=== PATIENT | male | born 1970 | race Caucasian/White ===

== ENCOUNTER 2023-05-27 16:23 | Emergency (ER) | payer OTHER, SELFPAY ==
--- NOTE | 2023-05-27 16:32 | ED.GENADULT ---
HPI - General Adult General Chief complaint: Upper Respiratory Infection Stated complaint: cough,chest discomfort Time Seen by Provider: 05/27/23 16:42 Source: patient, RN notes reviewed and old records reviewed Mode of arrival: ambulatory Limitations: no limitations History of Present Illness HPI narrative: 52-year-old male presents to the [facility] with complaints of a cough, congestion, felt fevers, body aches since Friday, 6 days. Reports that as a tickle in his throat. Patient has a significant history of type 2 diabetes, hypertension, high cholesterol. Patient reports stop smoking in 2000. Denies any shortness of breath. Reports chest discomfort when coughing Onset (ago): day(s) (6) Treatments prior to arrival: other (Cold medicine, ibuprofen) Related Data Home Medications Medication Instructions Recorded Confirmed aspirin 81 mg tablet,delayed 81 mg PO DAILY 05/27/23 05/27/23 release atorvastatin 10 mg tablet 10 mg PO HS 05/27/23 05/27/23 blood sugar diagnostic (Count includes the [facility] 05/27/23 05/27/23 Ultra Test strips) [facility] 05/27/23 Ultra2 Meter) empagliflozin 25 mg tablet 25 mg PO DAILY 05/27/23 05/27/23 (Jardiance) gabapentin 600 mg tablet 600 mg PO TID 05/27/23 05/27/23 glipizide 5 mg tablet 5 mg PO BID 05/27/23 05/27/23 lancets 33 gauge ([facility] 05/27/23 05/27/23 Plus Lancet) lisinopril 5 mg tablet 5 mg PO DAILY 05/27/23 05/27/23 metformin 500 mg tablet,extended 1,000 mg PO BID 05/27/23 05/27/23 release 24 hr pioglitazone 30 mg tablet 30 mg PO DAILY 05/27/23 05/27/23 Allergies Allergy/AdvReac Type Severity Reaction Status Date / Time Penicillins AdvReac Mild Hives Verified 05/27/23 16:49 Review of Systems Review of Systems: All systems reviewed & are unremarkable except as noted in HPI and below Constitutional: Constitutional: Reports as per HPI Eyes: Eyes: Reports no additional eye complaints ENT: Reports as per HPI Cardiovascular: Cardiovascular: Reports no additional cardiovascular complaints, Denies chest pain and Denies dyspnea Respiratory: Respiratory: Reports as per HPI, Denies chest congestion, Reports cough and Denies dyspnea Gastrointestinal: Gastrointestinal: Reports no additional gastrointestinal complaints, Denies abdominal pain, Denies nausea and Denies vomiting Musculoskeletal: Musculoskeletal: Reports no additional musculoskeletal complaints Integumentary/Breasts: Skin/Breast: Reports system reviewed and no additional complaints, except as docu Neurologic: Reports system reviewed and no additional complaints, except as documented Psychiatric: Psychiatric: Reports no additional psychiatric complaints Allergic/Immunologic: Allergic/Immunologic: Reports no additional allergic/immunologic complaints [facility] Past Medical History Medical History History of diabetes mellitus, type II History of high blood pressure History of high cholesterol Social History Social History (Updated 05/27/23 @ 19:50 by Fernanda Gomez APRN) Smoking status: Former smoker Comments At the time of my signature, I reviewed and agree with the nursing past medical, surgical, social, and family history. There is no relevant family history pertinent to the patient complaint. Exam Const: General: cooperative, healthy appearing, comfortable, no acute distress, well developed, alert and well nourished Nutritional Appearance: well nourished Orientation/consciousness: patient oriented x3 Limitations: no limitations HENMT: Head: normal to inspection Ears: hearing grossly normal bilaterally, external ears normal, TM's normal bilaterally, EAC's normal, mastoids normal and no periauricular adenopathy Face/Nose/Sinus: Normal external nose present, Normal nares present, Normal nasal mucous membranes and turbinates present, normal facial exam and face symmetric Face and sinus: normal facial exam and fac
[2023-05-27 16:42] VITALS: BP 141/84; PULSE 87; RESP 16; TEMP 36; O2SAT 97
== END 2023-05-27 17:00 | disposition home or self-care (01) ==
PROVIDERS: Emergency Provider Nurse Practitioner; PCP Family Medicine
DX: R09.82 Postnasal drip (principal); J06.9 Acute upper respiratory infection, unspecified; Z87.891 Personal history of nicotine dependence; E11.9 Type 2 diabetes mellitus without complications; Z79.84 Long term (current) use of oral hypoglycemic drugs; I10 Essential (primary) hypertension; E78.00 Pure hypercholesterolemia, unspecified; Z79.82 Long term (current) use of aspirin
CPT/HCPCS: 99202; G0463

== ENCOUNTER 2023-06-11 19:33 | Emergency (ER) | payer OTHER, SELFPAY ==
--- NOTE | 2023-06-11 19:37 | ED.EYEPROB ---
HPI - Eye Problem General Chief complaint: Eye Problems Stated complaint: Right Eye Irritation Time Seen by Provider: 06/11/23 19:37 Source: patient Mode of arrival: ambulatory Limitations: no limitations History of Present Illness HPI Narrative: 52-year-old male presents with complaint of foreign body to right eye. Patient states he was driving and car and thinks particle from his sweatshirt flew in to right eye. Patient was working with drywall and removing a popcorn ceiling today. Attempted to remove at home but was not able to. No vision changes, eye drainage or photophobia. All systems reviewed and negative except as noted above. Related Data Home Medications Medication Instructions Recorded Confirmed aspirin 81 mg tablet,delayed 81 mg PO DAILY 05/27/23 06/11/23 release atorvastatin 10 mg tablet 10 mg PO HS 05/27/23 06/11/23 blood sugar diagnostic (Pending sale to [facility] 05/27/23 06/11/23 Ultra Test strips) blood-glucose meter (Pending sale to [facility] 05/27/23 06/11/23 Ultra2 Meter) empagliflozin 25 mg tablet 25 mg PO DAILY 05/27/23 06/11/23 (Jardiance) gabapentin 600 mg tablet 600 mg PO TID 05/27/23 06/11/23 glipizide 5 mg tablet 5 mg PO BID 05/27/23 06/11/23 lancets 33 gauge (Pending sale to [facility] 05/27/23 06/11/23 Plus Lancet) lisinopril 5 mg tablet 5 mg PO DAILY 05/27/23 06/11/23 metformin 500 mg tablet,extended 1,000 mg PO BID 05/27/23 06/11/23 release 24 hr pioglitazone 30 mg tablet 30 mg PO DAILY 05/27/23 06/11/23 Allergies Allergy/AdvReac Type Severity Reaction Status Date / Time Penicillins AdvReac Mild Hives Verified 06/11/23 19:34 Review of Systems Review of Systems: CONSTITUTIONAL: Denies fever, chills, or sweats. EYES: Denies visual changes, redness, or discharge. Reports foreign body to right eye. ENT: Denies rhinorrhea, congestion, sore throat, or otalgia. CARDIOVASCULAR: Denies chest pain, palpitations, or edema. RESPIRATORY: Denies cough or dyspnea. GASTROINTESTINAL: Denies abdominal pain, nausea, vomiting, or diarrhea. GENITOURINARY: Denies dysuria or hematuria. SKIN: Denies rash or itching. MUSCULOSKELETAL: Denies back pain, joint pain, or myalgia. NEUROLOGIC: Denies headache, numbness, or weakness. PSYCHIATRIC: Denies anxiety or depression. All other systems reviewed are negative, except as documented in HPI. [facility] Past Medical History Medical History History of diabetes mellitus, type II History of high blood pressure History of high cholesterol Social History Social History (Updated 05/27/23 @ 19:50 by Fernanda Gomez APRN) Smoking status: Former smoker Comments At time of signature, agree with nursing past medical, surgical, social and family history. There is no relevant family history pertinent to the presenting complaint. Exam Narrative: GENERAL: This is a well-nourished, well-developed patient, in no apparent distress. HEAD: normocephalic, atraumatic. EYES: PERRL. Mild erythema to Sclera. Vision is grossly intact. Topical anesthetic was instilled with good anesthesia using 1gtt of opth anesthetic agent (tetracaine). Fluorescein stain of the R eye was performed. Small foreign body noted at position of 6 o'clock of cornea. small corneal abrasion noted after FB removal. Upper lid was everted and no FB or lesions were noted. Normal saline irrigation eye solution was performed and the patient tolerated the procedure well, no adverse reaction or complications. EARS: External ears normal NOSE: External nose normal NECK: Neck supple, non-tender without lymphadenopathy, masses or thyromegaly. CARDIOVASCULAR: Regular rate and rhythm without murmurs, gallops, or rubs. RESPIRATORY: Clear to auscultation. Breath sounds equal bilaterally. No wheezes, rales, or rhonchi. SKIN: warm, Dry, intact with no suspicious lesions or rash, good texture and turgor. NEURO: awake, alert, and oriented to person, place and time. There wer
[2023-06-11 19:41] VITALS: BP 150/82; PULSE 87; RESP 18; TEMP 36.3; O2SAT 99
== END 2023-06-11 19:52 | disposition home or self-care (01) ==
PROVIDERS: Emergency Provider Nurse Practitioner Family; PCP Family Medicine
DX: T15.01XA Foreign body in cornea, right eye, initial encounter (principal); W44.9XXA Unspecified foreign body entering into or through a natural orifice, initial encounter; E11.9 Type 2 diabetes mellitus without complications; Z79.84 Long term (current) use of oral hypoglycemic drugs; I10 Essential (primary) hypertension; E78.00 Pure hypercholesterolemia, unspecified; Z87.891 Personal history of nicotine dependence; Z79.82 Long term (current) use of aspirin
CPT/HCPCS: 99213; A9270; G0463

== ENCOUNTER 2023-09-11 16:21 | Emergency (ER) | payer OTHER, SELFPAY ==
[2023-09-11 16:28] VITALS: BP 139/76; PULSE 95; RESP 18; TEMP 36.6; O2SAT 100
--- NOTE | 2023-09-11 16:34 | ED.DENTAL ---
HPI - Dental/Oral General Chief complaint: Dental/Oral Stated complaint: oral pain Time Seen by Provider: 09/11/23 16:41 Source: patient, RN notes reviewed and old records reviewed Mode of arrival: ambulatory Limitations: no limitations History of Present Illness HPI Narrative: 52-year-old male to [facility] for complaint of diffuse dental pain, headache, body aches, diffuse gingival pain and swelling, fever for four days. Patient reporting pain 7/10 currently, states that the worst discomfort is at his upper right molar area. Patient states that he has a history of bad teeth . Patient cannot recall his last visit to a dentist. States that he has an appointment scheduled on October 26. Patient endorses allergy to penicillin, states that he has tolerated amoxicillin previously. Patient denies chest pain, difficulty swallowing, shortness breath, nausea, vomiting. patient states that he has had 2 adhere to a mostly soft diet over the past 3 days. Patient able to tolerate fluids by mouth. Respirations even and nonlabored. Patient able speak in complete sentences without difficulty. Patient in no acute distress. Related Data Home Medications Medication Instructions Recorded Confirmed aspirin 81 mg tablet,delayed 81 mg PO DAILY 05/27/23 06/11/23 release atorvastatin 10 mg tablet 10 mg PO HS 05/27/23 06/11/23 blood sugar diagnostic ([facility] 05/27/23 06/11/23 Ultra Test strips) blood-glucose meter ([facility] 05/27/23 06/11/23 Ultra2 Meter) empagliflozin 25 mg tablet 25 mg PO DAILY 05/27/23 06/11/23 (Jardiance) gabapentin 600 mg tablet 600 mg PO TID 05/27/23 06/11/23 glipizide 5 mg tablet 5 mg PO BID 05/27/23 06/11/23 lancets 33 gauge ([facility] 05/27/23 06/11/23 Plus Lancet) lisinopril 5 mg tablet 5 mg PO DAILY 05/27/23 06/11/23 metformin 500 mg tablet,extended 1,000 mg PO BID 05/27/23 06/11/23 release 24 hr pioglitazone 30 mg tablet (Actos) 30 mg PO DAILY 05/27/23 06/11/23 dulaglutide 0.75 mg/0.5 mL mg subcut 09/11/23 subcutaneous pen injector ([facility]) Allergies Allergy/AdvReac Type Severity Reaction Status Date / Time Penicillins Allergy Mild Hives Verified 09/11/23 16:42 Review of Systems Review of Systems: All systems reviewed & are unremarkable except as noted in HPI and below Constitutional: Constitutional: Reports as per HPI, Reports body ache(s), Reports chills, Reports difficulty sleeping, Reports fatigue and Reports fever(s) Eyes: Eyes: Reports no additional eye complaints ENT: Reports as per HPI, Reports dental pain, Denies hoarseness, Reports mouth pain, Denies throat swelling and Denies tongue swelling Cardiovascular: Cardiovascular: Reports no additional cardiovascular complaints, Denies chest pain and Denies dyspnea Respiratory: Respiratory: Reports no additional respiratory complaints, Denies cough and Denies dyspnea Musculoskeletal: Musculoskeletal: Reports no additional musculoskeletal complaints Neurologic: Reports system reviewed and no additional complaints, except as documented Psychiatric: Psychiatric: Reports no additional psychiatric complaints PMFSH Past Medical History Medical History History of diabetes mellitus, type II History of high blood pressure History of high cholesterol Social History Social History (Updated 05/27/23 @ 19:50 by Fernanda Gomez APRN) Smoking status: Former smoker Comments At the time of my signature, I reviewed and agree with the nursing past medical, surgical, social, and family history. There is no relevant family history pertinent to the patient complaint. Exam Const: General: cooperative, no acute distress, alert, uncomfortable and well nourished Nutritional Appearance: well nourished Orientation/consciousness: patient oriented x3 Limitations: no limitations HENMT: Head: normal to inspection Ears: external ears normal Face/Nose/Sinus: Normal e
== END 2023-09-11 17:05 | disposition home or self-care (01) ==
PROVIDERS: Emergency Provider Nurse Practitioner Family
DX: K02.9 Dental caries, unspecified (principal); K04.7 Periapical abscess without sinus; K05.10 Chronic gingivitis, plaque induced; S02.5XXA Fracture of tooth (traumatic), initial encounter for closed fracture; X58.XXXA Exposure to other specified factors, initial encounter; Z87.891 Personal history of nicotine dependence; E11.9 Type 2 diabetes mellitus without complications; I10 Essential (primary) hypertension; E78.00 Pure hypercholesterolemia, unspecified; Z79.82 Long term (current) use of aspirin
CPT/HCPCS: 99213; G0463

== ENCOUNTER 2023-11-18 17:51 | Emergency (ER) | payer OTHER, SELFPAY ==
[2023-11-18 18:01] VITALS: BP 128/69; PULSE 72; RESP 17; TEMP 36.5; O2SAT 99
--- NOTE | 2023-11-18 18:05 | ED.LOWEXIN ---
HPI - Extremity Injury (Lower) General Chief Complaint: Extremity Injury, Lower Stated Complaint: RT Leg Pain Source: patient Mode of arrival: ambulatory Limitations: no limitations History of Present Illness HPI Narrative: 53-year-old male presented for complaint of right lower leg wound sustained 1 week ago. Now reports purple bruising to the lower leg for about 2 days. He states he fell through a wooden deck approximately 4 ft and scraped the naylor. He denies ankle or foot pain or decreased range of motion. Reports the wound was not cleansed he continued to work, then use soap and water when he arrived home. Has continued to clean the site with soap and water. Related Data Home Medications Medication Instructions Recorded Confirmed aspirin 81 mg tablet,delayed 81 mg PO DAILY 05/27/23 11/18/23 release atorvastatin 10 mg tablet 10 mg PO HS 05/27/23 11/18/23 [facility]18/23 Ultra Test strips[facility] 11/18/23 Ultra2 Meter) empagliflozin 25 mg tablet 25 mg PO DAILY 05/27/23 11/18/23 (Jardiance) gabapentin 600 mg tablet 600 mg PO TID 05/27/23 11/18/23 glipizide 5 mg tablet 5 mg PO BID 05/27/23 11/18/23 [facility]ets [facility] 05/27/23 11/18/23 Plus Lancet) lisinopril 5 mg tablet 5 mg PO DAILY 05/27/23 11/18/23 metformin 500 mg tablet,extended 1,000 mg PO BID 05/27/23 11/18/23 release 24 hr pioglitazone 30 mg tablet (Actos) 30 mg PO DAILY 05/27/23 11/18/23 Allergies Allergy/AdvReac Type Severity Reaction Status Date / Time Penicillins Allergy Mild Hives Verified 09/11/23 16:42 Review of Systems Review of Systems: CONSTITUTIONAL: Denies fever, chills, or sweats. CARDIOVASCULAR: Denies chest pain, palpitations, or edema. RESPIRATORY: Denies cough or dyspnea. GASTROINTESTINAL: Denies abdominal pain, nausea, vomiting, or diarrhea. SKIN: Reports skin wound to naylor MUSCULOSKELETAL: Denies back pain, joint pain, or myalgia. NEUROLOGIC: Denies numbness, tingling, or weakness. PMFSH Past Medical History Medical History History of diabetes mellitus, type II History of high blood pressure History of high cholesterol Social History Social History Smoking status: Former smoker Comments At time of signature, I have reviewed and agree with nursing past medical, surgical, social and family history unless otherwise noted. Please see nursing chart for further information. There is no relevant family history pertinent to the presenting complaint Exam Narrative: GENERAL: Well-appearing ENT: Mucous membranes moist. CHEST: Clear to auscultation. HEART: Regular rate and rhythm. SKIN: Warm, dry. Right anterior naylor with skin abrasion 11 cm x 1 cm, no active drainage, no surrounding induration or warmth; mildly tender to palpation. Ecchymosis noted distal to the abrasion scattered around the ankle and posterior lower leg, nontender. No calf tenderness. Minimal right lower extremity swelling. NEURO: Alert and oriented x3. Course Course Emergency Course: Patient is aware of diagnosis, understands and agrees to treatment plan. Anticipatory guidance given. Patient agrees to follow-up as directed and is aware of reasons to seek care at the emergency department. Portions of this record may have been created with voice recognition software Level of Care: Express Care Visit Vital Signs Vital signs: Vital Signs Temperature 97.7 F 11/18/23 18:01 Pulse Rate 72 11/18/23 18:01 Respiratory Rate 17 11/18/23 18:01 Blood Pressure 128/69 11/18/23 18:01 Pulse Oximetry 99 11/18/23 18:01 Oxygen Delivery Room Air 11/18/23 18:01 Temperature 97.7 F 11/18/23 18:01 Pulse Rate 72 11/18/23 18:01 Respiratory Rate 17 11/18/23 18:01 Blood Pressure 128/69 11/18/23 18:01 Pulse Oximet
== END 2023-11-18 18:24 | disposition home or self-care (01) ==
PROVIDERS: Emergency Provider Nurse Practitioner Family; PCP Family Medicine
DX: S80.811A Abrasion, right lower leg, initial encounter (principal); W13.8XXA Fall from, out of or through other building or structure, initial encounter; K08.89 Other specified disorders of teeth and supporting structures; E11.9 Type 2 diabetes mellitus without complications; Z79.84 Long term (current) use of oral hypoglycemic drugs; I10 Essential (primary) hypertension; E78.00 Pure hypercholesterolemia, unspecified; Z87.891 Personal history of nicotine dependence; Z79.82 Long term (current) use of aspirin
CPT/HCPCS: 99213; G0463

== ENCOUNTER 2024-06-23 08:53 | Emergency (ER) | payer OTHER, SELFPAY ==
--- NOTE | 2024-06-23 09:00 | ED.URI ---
HPI - URI/Sore Throat General Chief Complaint: Upper Respiratory Infection Stated Complaint: cold symptoms Time Seen by Provider: 06/23/24 09:01 Source: patient Mode of arrival: ambulatory Limitations: no limitations History of Present Illness HPI Narrative: 53-year-old male presents with complaint really bad sore throat since last night with fatigue, body aches, chills. Denies nausea vomiting. No Cough or congestion. all systems reviewed and negative except as noted above. Related Data Home Medications ?Medication ?Instructions ?Recorded ?Confirmed ?Last Taken ?Type aspirin 81 mg tablet,delayed 81 mg PO DAILY 05/27/23 06/23/24 Unknown History release atorvastatin 10 mg tablet 10 mg PO HS 05/27/23 06/23/24 Unknown History blood sugar diagnostic ([facility] 05/27/23 06/23/24 Unknown History Ultra Test strips) blood-glucose meter ([facility] 05/27/23 06/23/24 Unknown History Ultra2 Meter) empagliflozin 25 mg tablet 25 mg PO DAILY 05/27/23 06/23/24 Unknown History (Jardiance) gabapentin 600 mg tablet 600 mg PO TID 05/27/23 06/23/24 Unknown History glipizide 5 mg tablet 5 mg PO BID 05/27/23 06/23/24 Unknown History lancets 33 gauge ([facility] 05/27/23 06/23/24 Unknown History Plus Lancet) lisinopril 5 mg tablet 5 mg PO DAILY 05/27/23 06/23/24 Unknown History metformin 500 mg tablet,extended 1,000 mg PO BID 05/27/23 06/23/24 Unknown History release 24 hr pioglitazone 30 mg tablet (Actos) 30 mg PO DAILY 05/27/23 06/23/24 Unknown History dulaglutide 1.5 mg/0.5 mL mg subcut 06/23/24 Unknown History subcutaneous pen injector (Trulicity) ergocalciferol (vitamin D2) 1,250 06/23/24 Unknown History mcg (50,000 unit) capsule fenofibrate 54 mg tablet mg 06/23/24 Unknown History tadalafil 10 mg tablet mg 06/23/24 Unknown History Allergies Allergy/AdvReac Type Severity Reaction Status Date / Time Penicillins Allergy Mild Hives Verified 06/23/24 08:56 Review of Systems Review of Systems: CONSTITUTIONAL: Denies fever . reports chills and fatigue. EYES: Denies visual changes, redness, or discharge. ENT: Denies rhinorrhea, congestion . Reports sore throat. Denies otalgia. CARDIOVASCULAR: Denies chest pain, palpitations, or edema. RESPIRATORY: Denies cough or dyspnea. GASTROINTESTINAL: Denies abdominal pain, nausea, vomiting, or diarrhea. GENITOURINARY: Denies dysuria or hematuria. SKIN: Denies rash or itching. MUSCULOSKELETAL: Denies back pain, joint pain, or myalgia. NEUROLOGIC: Denies headache, numbness, or weakness. PSYCHIATRIC: Denies anxiety or depression. All other systems reviewed are negative, except as documented in HPI. [facility] Past Medical History Medical History History of diabetes mellitus, type II History of high blood pressure History of high cholesterol Social History Social History Smoking status: Former smoker Comments At time of signature, agree with nursing past medical, surgical, social and family history. There is no relevant family history pertinent to the presenting complaint. Exam Narrative: GENERAL: This is a well-nourished, well-developed patient, ill-appearing but no acute distress HEAD: normocephalic, atraumatic. EYES: PERRL. Sclera clear/white. Vision is grossly intact. EARS: External ears normal, auditory canals clear and without drainage, TMs normal without perforation. Hearing grossly intact. NOSE: External nose normal with no obvious nasal discharge, nares without redness, no rhinorrhea. THROAT: Mucous membranes moist, Mild erythema without significant swelling or exudates NECK: Neck supple, non-tender without lymphadenopathy, masses or thyromegaly. CARDIOVASCULAR: Regular rate and rhythm without murmurs, gallops, or rubs. RESPIRATORY: Clear to auscultation. Breath sounds equal bilaterally. No wheezes, rales, or rhonchi. SKIN: warm, Dry, intact with no suspicious lesions or rash, good texture and turgor. NEURO: awake, alert, and oriented to person, place and time. There were no obvious focal neurologic abnormalities. EXTREMITIES: No joint tenderness, effusion, or edema noted. Course Course Level of Care: Express Care Visit Vital Signs Vital signs: Vital Signs Temperature 35.9 C L 05/07/25 09:04 Pulse Rate 71 06/23/24 09:04 Respiratory Rate 17 06/23/24 09:04 Blood Pressure 119/64 06/23/24 09:04 Pulse Oximetry 99 06/23/24 09:04 Oxygen Delivery Room Air 06/23/24 09:04 Temperature 35.9 C L 06/23/24 09:04 Pulse Rate 71 06/23/24 09:04 Respiratory Rate 17 06/23/24 09:04 Blood Pressure 119/64 06/23/24 09:04 Pulse Oximetry 99 06/23/24 09:04 Oxygen Delivery Room Air 06/23/24 09:04 reviewed MDM - URI/Sore Throat MDM Narrative Medical decision making narrative: negative COVID, influenza and strep. Strep culture ordered. Patient is alert, nontoxic. Recommend [id number] medications to treat viral symptoms. Exam findings show no acute concerns or changes; patient is non-toxic appearing and is in no distress. Patient is appropriate for outpatient treatment and follow-up. Differential Diagnosis Differential diagnosis: Likely upper respiratory infection, viral infection and pharyngitis Lab Data Labs: Lab Results 06/23/24 Range/Units 09:26 POC Influenza A Ag Negative (Negative) POC Influenza B Ag Negative (Negative) POC SARS CoV-2 Ag Negative (Negative) POC Grp A Strep Screen Negative (Negative) Discharge Plan Discharge Clinical Impression: Acute viral pharyngitis Patient Disposition: Home Condition: Stable Instructions: Pharyngitis (ED) Additional Instructions: your COVID, influenza and strep test were negative today. A strep culture was ordered and results will take 24-48 hours. If her strep culture is positive we will call you at that time and prescribed an antibiotic. Your symptoms are viral and may last 10-14 days. Take [id number] medications to treat your symptoms. Drink plenty of water and rest. Follow-up with your doctor if symptoms are not improving. Patient Language: Lao Prescriptions: No Action ergocalciferol (vitamin D2) 1,250 mcg (50,000 unit) capsule tadalafil 10 mg tablet fenofibrate 54 mg tablet Trulicity 1.5 mg/0.5 mL pen injector SUBCUT gabapentin 600 mg tablet 600 mg PO TID (DME) blood-glucose meter [[facility] Ultra2 Meter] Misc MISCELLANEOUS atorvastatin 10 mg tablet 10 mg PO HS (DME) OneTouch Ultra Test Strip MISCELLANEOUS aspirin 81 mg tablet,delayed release (DR/EC) 81 mg PO DAILY lisinopril 5 mg tablet 5 mg PO DAILY pioglitazone [Actos] 30 mg tablet 30 mg PO DAILY metformin 500 mg tablet extended release 24 hr 1,000 mg PO BID glipizide 5 mg tablet 5 mg PO BID (DME) lancets [OneTouch Delica Plus Lancet] 33 gauge misc MISCELLANEOUS Jardiance 25 mg tablet 25 mg PO DAILY Follow-up/Referrals: Tejas,MD Yoni [Primary Care Provider] - Time of Disposition: 09:33
[2024-06-23 09:04] VITALS: BP 119/64; PULSE 71; RESP 17; TEMP 35.9; O2SAT 99
--- OUTSIDE RECORDS SUMMARY | 2024-06-23 09:07 | XMS_ITS | Data Portability ---
Author Organization [place] [facility] [employer], Main Office Address [address] [place] [id number] Care Team Providers Care Metal Grinder Name Role Phone YONI LAZARO Primary Care Provider Assessment Encounter Date Assessment Date Assessment LastModified by Organization Details LastModified Time 11/04/2023 11/04/2023 53 yo M with - DM II, uncontrolled - HTN - HLD - HTG - LT SHOULDER PAIN, chronic - B/L WRIST PAIN, chronic - NEUROPATHY - OVERWEIGHT - EX-SMOKER (Quitted 25 yrs ago) HbA1c: 8.2(03/20/23) X-ray b/l wrist & Lt shoulder: 08/15/23. Annual labs: 03/20/23. D/w pt in detail about his conditions, recent labs & imagine and further plan of care. Will refer pt to Ortho. All meds verified with pt. Meds as directed. Ice pack & b/l wrist splint as directed prn. Diet and exercise explained in detail. BP & DM diary education given and call us if any concerns. F/u with Ortho as per schedule. Cont f/u with Ophtho as per schedule. Pt declined for cxr/LDCT chest. Pt declined for PT. Pt declined for hand surgeon/Podiatr ist. HM: Colonoscopy - 2017, normal as per pt. Cont f/u with GI as per schedule. Flu - Pt declined. Tdap, Pneumo, Shingrix - At pharmacy/HD. F/u in 1-2 months. A1c, lipids before next visit. Annual labs in 02/09. [email or web address] Not available 11/04/2023 17:03:36 12/10/2023 12/10/2023 53 yo M with - DM II, uncontrolled - HTN - HLD - HTG - LT SHOULDER PAIN, chronic - B/L WRIST PAIN, chronic - NEUROPATHY - OVERWEIGHT - EX-SMOKER (Quitted 25 yrs ago) HbA1c: 8.2(03/20/23) X-ray b/l wrist & Lt shoulder: 08/15/23. Annual labs: 03/20/23. D/w pt in detail about his conditions, recent labs & imagine and further plan of care. Advised pt to go for testing soon. Orders given again. All meds verified with pt. Meds as directed. Ice pack & b/l wrist splint as directed prn. Diet and exercise explained in detail. BP & DM diary education given and call us if any concerns. F/u with Ortho as per schedule. Cont f/u with Ophtho as per schedule. Pt declined for cxr/LDCT chest. Pt declined for PT. Pt declined for hand surgeon/Podiatr ist. HM: Colonoscopy - 2017, normal as per pt. Cont f/u with GI as per schedule. Flu - Pt declined. Tdap, Pneumo, Shingrix - At pharmacy/HD. F/u in 1-2 months. A1c, lipids before next visit. Annual labs in 02/09. [email or web address] Not available 12/10/2023 10:07:46 02/02/2024 02/02/2024 53 yo M with - WELL ADULT VISIT - DM II, uncontrolled - HTN - HLD - HTG - LT SHOULDER PAIN, chronic - B/L WRIST PAIN, chronic - NEUROPATHY - OVERWEIGHT - EX-SMOKER (Quitted since 11/1998) HbA1c: 8.2(03/20/23) X-ray b/l wrist & Lt shoulder: 08/15/23. Annual labs: 03/20/23. D/w pt in detail about his conditions, recent labs & imagine and further plan of care. Will do routine labs. Pt declined for cxr. Will refer to Cryptologic Technician. All meds verified with pt. Meds as directed. Cont ice pack & b/l wrist splint as directed prn. Diet and exercise explained in detail. BP & DM diary education given and call us if any concerns. F/u with Cryptologic Technician as per schedule. F/u with Ortho as per schedule. Cont f/u with Ophtho as per schedule. Pt declined for cxr/LDCT chest. Pt declined for PT. Pt declined for hand surgeon/Podiatr ist. HM: Colonoscopy - 2017, normal as per pt. Cont f/u with GI as per schedule. Flu - Pt declined. Tdap, Pneumo, Shingrix - At pharmacy/HD. F/u in 2-3 weeks. Annual labs in 02/10. [email or web address] Not available 02/02/2024 10:20:35 Plan of Treatment Reminders Order Date Submit Date Provider Last Modified By Organization Details Last Modified Time Details Appointments Follow Up 15 2024 08:00A Carlyn Lin, NETWORK OPERATIONS PROJECT MANAGER Not available Not available Not available Lab glycohemo globin, total, blood 2024 025 [facility] (Lab), [address] [place], [address], 05/25/2024 09:45:36 lipid panel, serum 2024 025 [facility] (Lab), [address] [place], [address], 05/26/2024 05:04:52 uric acid, serum or plasma [address] (Lab), [address] [place], [address], 02/02/2024 11:44:12 vitamin D3, 25-hydrox y, serum [address] (Lab), [address] [place], [address], 02/02/2024 11:44:41 CMP, serum or plasma [address] (Lab), [address] [place], [address], 02/02/2024 11:22:23 CBC w/ auto diff [address] (Lab), [address] [place], [address], 02/02/2024 11:40:55 lipid panel, blood [address] (Lab), [address] [place], [address], 02/04/2024 10:09:37 TSH, serum, reflex free T4 [address] (Lab), [address] [place], [address], 02/04/2024 10:09:37 PSA, serum or plasma [address] (Lab), [address] [place], [address], 02/02/2024 11:42:04 urinalysi s complete, reflex culture [address] (Lab), [address] [place], [address], 02/02/2024 11:42:40 glycohemo globin, total, blood [address] (Lab), [address] [place], [address], 02/02/2024 11:43:15 microalbu min, urine [address] (Lab), [address] [place], [address], 02/02/2024 11:43:44 lipid panel, serum 2023 024 [facility] (Lab), [address] [place], [address], 12/11/2023 08:15:25 glycohemo globin, total, blood 2023 024 [facility] [address] [facility] [place], [address], 02/02/2024 20:59:40 Referral ophthalmo logist referral - Please call patient to schedule an appointme nt. Thank you. 2024 025 [email or web address] [facility], [address] , [place], [address], 03/24/2024 08:50:32 podiatris t referral - Please call patient to schedule an appointme nt. Thank you. 2023 024 [email or web address] [facility], [address], [place], [address], 03/23/2024 08:37:54 orthopedi c surgeon referral - Please call patient to schedule an appointme nt. 2023 024 [email or web address] [facility], [address] [facility] [address], [place], [address], 12/02/2023 08:44:17 Procedures None recorded. Surgeries None recorded. Imaging XR, shoulder, 2 or more view - Please XR KATIE shoulders 2024 025 [email or web address] [address] [facility], [address], [place], [address], 03/02/2024 09:00:41 XR, wrist, 3 or more view - Please XR KATIE wrists 2024 025 [email or web address] [address] [facility], [address], [place], [address], 03/02/2024 09:00:41 Medication Orders tadalafil 10 mg tablet [address] [facility], [address], [place], [address], 05/25/2024 09:41:44 Trulicity 1.5 mg/0.5 mL subcutane ous pen injector [address] [facility], [address] [place], [address], 05/25/2024 09:41:45 ergocalci ferol (vitamin D2) 1,250 mcg (50,000 unit) capsule [address] [facility], [address] [place], [address], 02/24/2024 09:18:47 fenofibra te 54 mg tablet [address] [facility], [address] [place] [address], [address], 02/02/2024 10:17:09 lisinopri l 5 mg tablet [address] [facility], [address] [place] [address], [id number], 02/02/2024 10:17:11 gabapenti n 600 mg tablet [address] [facility], [facility] [place], [address], 02/02/2024 10:17:11 atorvasta tin 10 mg tablet [address] [facility], [address] [place], [address], 02/02/2024 10:17:10 diclofena c sodium 75 mg tablet,de layed release 2023 024 [facility], [facility] [place], [address], 02/24/2024 09:00:59 glipizide 5 mg tablet [address] [facility], [address] [place] [address], [address], 02/02/2024 10:17:10 Jardiance 25 mg tablet [address] [facility], [address] [place] [address], [id number], 02/02/2024 10:17:16 metformin ER 500 mg tablet,ex tended release 24 hr [address] [facility], [address] [place] [address], [id number], 02/02/2024 10:17:10 Adult Low Dose Aspirin 81 mg tablet,de layed release [address] [facility], [address] [place] [address], [id number], 02/02/2024 10:17:08 pioglitaz one 45 mg tablet 2023 024 [facility], [address] [place] [address], [id number], 05/26/2024 09:31:16 Trulicity 1.5 mg/0.5 mL subcutane ous pen injector 2023 024 [facility], [address] [place] [address], [id number], 02/02/2024 10:17:09 fenofibra te 54 mg tablet [address] [facility], [address] [place] [address], [id number], 12/10/2023 10:04:14 lisinopri l 5 mg tablet [address] [facility], [address] [place] [address], [address], 12/10/2023 10:04:13 gabapenti n 600 mg tablet 2023 [facility] [address], [address] [place] [address], [address], 12/10/2023 10:04:13 atorvasta tin 10 mg tablet 2023 [facility] [address], [address] [place] [address], [address], 12/10/2023 10:04:15 diclofena c sodium 75 mg tablet,de layed release [address], [address] [place] [address], [address], 02/24/2024 09:00:59 glipizide 5 mg tablet 2023 [email or web address] [facility], [address] [place] [address], [id number], 12/10/2023 10:06:24 Jardiance 25 mg tablet 2023 [facility] [address], [address] [place] [address], [address], 12/10/2023 10:04:15 metformin ER 500 mg tablet,ex tended release 24 hr 2023 [facility] [address], [address] [place] [address], [address], 12/10/2023 10:04:20 Adult Low Dose Aspirin 81 mg tablet,de layed release 2023 024 [facility] [address], [address] [place] [address], [address], 12/10/2023 10:04:13 pioglitaz one 45 mg tablet [address], [address] [place] [address], [address], 05/26/2024 09:31:16 Trulicity 1.5 mg/0.5 mL subcutane ous pen injector [address] [facility], [address] [place] [address], [address], 12/10/2023 10:04:14 fenofibra te 54 mg tablet [address] [facility], [address] [place] [address], [address], 11/04/2023 16:55:47 lisinopri l 5 mg tablet 2023 [facility] [address], [address] [place] [address], [address], 11/04/2023 16:55:53 gabapenti n 600 mg tablet [address] [facility], [address] [place] [address], [address], 11/04/2023 16:55:49 atorvasta tin 10 mg tablet [address] [facility] [address], [address] [place] [address], [address], 11/04/2023 16:55:48 diclofena c sodium 75 mg tablet,de layed release 2023 024 [facility] [address], [address] [place] [address], [address], 02/24/2024 09:00:59 glipizide 5 mg tablet 2023 [facility] [address], [address] [place] [address], [address], 11/04/2023 16:55:56 Jardiance 25 mg tablet 2023 024 [facility] [address], [address] [place] [address], [address], 11/04/2023 16:55:48 metformin ER 500 mg tablet,ex tended release 24 hr 2023 024 [email or web address] [facility] [address], [address] [place] [address], [address], 11/04/2023 17:02:59 Adult Low Dose Aspirin 81 mg tablet,de layed release 2023 024 [facility], [address] [place] [address], [address], 11/04/2023 16:55:54 pioglitaz one 45 mg tablet 2023 024 [facility] [address], [address] [place] [address], [address], 05/26/2024 09:31:16 Ozempic 0.25 mg or 0.5 mg (2 mg/3 mL) subcutane ous pen injector 2023 024 [email or web address] [facility] [address], [address] [place] [address], [address], 12/10/2023 10:01:02 Patient TargetsNo targets recorded. Patient Instructions Encounter Date Encounter Id Patient Instructions Last Modified By Organization Details Last Modified Time 11/04/2023 [id number] When You Want to Lose Weight: Care Instructions [email or web address] Not available 11/04/2023 17:01:18 12/10/2023 [id number] When You Want to Lose Weight: Care Instructions [email or web address] Not available 12/10/2023 10:04:01 02/02/2024 [id number] When You Want to Lose Weight: Care Instructions Not available 02/02/2024 10:16:56 Reason for Referral Orthopedic Surgeon Referral for Pain of left shoulder joint Chronic Lt shoulder pain, x-ray neg, PT done in the past. Please call patient to schedule an appointment. Referring Physician: Yoni Lazaro, Family Medicine, Encounter Date: 11/04/2023 Cryptologic Technician Referral for Type 2 diabetes mellitus without complication Please call patient to schedule an appointment. Thank you. Referring Physician: Yoni Lazaro, [facility], Encounter Date: 02/02/2024 Senior Safety Management Consultant Referral for Diabetic retinal eye exam not done Please call patient to schedule an appointment. Thank you. Referring Physician: Mariana Lin, [facility], Encounter Date: 02/24/2024 Results Created Date Observation Date Name Description Value Unit Range Abnormal Flag Note LastModifiedBy Organization Detail LastModifiedTime 02/02/20 24 02/02/2024 CBC/C OMPLE TE BLD COUNT W/DIF F white blood cells 7.3 x10'3 /uL 4.2-10 .8 Not Available [facility] (Lab) [address] [place], [address], 02/02/2024 19:04:22 02/02/20 24 02/02/2024 CBC/C OMPLE TE BLD COUNT W/DIF F red blood cells 5.31 x10'6 /uL 4.10-5 .80 Not Available [facility] (Lab) [address] [place], [address], 02/02/2024 19:04:22 02/02/20 24 02/02/2024 CBC/C OMPLE TE BLD COUNT W/DIF F hemoglobin 16.6 g/dL 13.2-1 7.0 Not Available [facility] (Lab) [address] [place], [address], 02/02/2024 19:04:22 02/02/20 24 02/02/2024 CBC/C OMPLE TE BLD COUNT W/DIF F hematocrit 47.0 % 39.3-5 0.0 Not Available [facility] (Lab) [address] [place], [address], 02/02/2024 19:04:22 02/02/20 24 02/02/2024 CBC/C OMPLE TE BLD COUNT W/DIF F mean red cell volume 88.5 fL 80.0-9 7.0 Not Available [facility] (Lab) [address] [place], [address], 02/02/2024 19:04:22 02/02/20 24 02/02/2024 CBC/C OMPLE TE BLD COUNT W/DIF F mean red cell hemoglobin 31.3 pg 27.0-3 3.0 Not Available [facility] (Lab) [address] [place], [address], 02/02/2024 19:04:22 02/02/20 24 02/02/2024 CBC/C OMPLE TE BLD COUNT W/DIF F mean RBC HGB concentratio n 35.3 g/dL 31.0-3 6.0 Not Available [facility] (Lab) [address] [place], [address], 02/02/2024 19:04:22 02/02/20 24 02/02/2024 CBC/C OMPLE TE BLD COUNT W/DIF F red cell distribution width 12.7 % 11.8-1 5.5 Not Available [facility] (Lab) [address] [place], [address], 02/02/2024 19:04:22 02/02/20 24 02/02/2024 CBC/C OMPLE TE BLD COUNT W/DIF F platelets 166 x10'3 /uL 150-40 0 Not Available [facility] (Lab) [address] [place], [address], 02/02/2024 19:04:22 02/02/20 24 02/02/2024 CBC/C OMPLE TE BLD COUNT W/DIF F mean platelet volume 10.1 fL 9.0-12 .4 Not Available [facility] (Lab) [address] [place], [address], 02/02/2024 19:04:22 02/02/20 24 02/02/2024 CBC/C OMPLE TE BLD COUNT W/DIF F neutrophils 64.1 % 39.0-7 2.0 Not Available [facility] (Lab) [address] [place], [address], 02/02/2024 19:04:22 02/02/20 24 02/02/2024 CBC/C OMPLE TE BLD COUNT W/DIF F lymphocytes 25.8 % 16.0-4 7.0 Not Available [facility] (Lab) [address] [place], [address], 02/02/2024 19:04:22 02/02/20 24 02/02/2024 CBC/C OMPLE TE BLD COUNT W/DIF F monocytes 8.1 % 5.0-12 .0 Not Available [facility] (Lab) [address] [place], [address], 02/02/2024 19:04:22 02/02/20 24 02/02/2024 CBC/C OMPLE TE BLD COUNT W/DIF F eosinophils 1.2 % 1.0-7. 0 Not Available [facility] (Lab) [address] [place], [address], 02/02/2024 19:04:22 02/02/20 24 02/02/2024 CBC/C OMPLE TE BLD COUNT W/DIF F basophils 0.5 % 0.0-2. 0 Not Available [facility] (Lab) [address] [place], [address], 02/02/2024 19:04:22 02/02/20 24 02/02/2024 CBC/C OMPLE TE BLD COUNT W/DIF F immature granulocytes 0.3 % 0.00-0 .50 Not Available [facility] (Lab) [address] [place], [address], 02/02/2024 19:04:22 02/02/20 24 02/02/2024 CBC/C OMPLE TE BLD COUNT W/DIF F neutrophils, absolute count 4.68 x10'3 /uL 1.5-8. 0 Not Available [facility] (Lab) [address] [place], [address], 02/02/2024 19:04:22 02/02/20 24 02/02/2024 CBC/C OMPLE TE BLD COUNT W/DIF F lymphocytes, absolute count 1.88 x10'3 /uL 1.07-3 .43 Not Available [facility] (Lab) [address] [place], [address], 02/02/2024 19:04:22 02/02/20 24 02/02/2024 CBC/C OMPLE TE BLD COUNT W/DIF F monocytes, absolute count 0.59 x10'3 /uL 0.29-0 .99 Not Available [facility] (Lab) [address] [place], [address], 02/02/2024 19:04:22 02/02/20 24 02/02/2024 CBC/C OMPLE TE BLD COUNT W/DIF F eosinophils, absolute count 0.09 x10'3 /uL 0.02-0 .53 Not Available [facility] (Lab) [address] [place], [address], 02/02/2024 19:04:22 02/02/20 24 02/02/2024 CBC/C OMPLE TE BLD COUNT W/DIF F basophils, absolute count 0.04 x10'3 /uL 0.01-0 .08 Not Available [facility] (Lab) [address] [place], [address], 02/02/2024 19:04:22 02/02/20 24 02/02/2024 CBC/C OMPLE TE BLD COUNT W/DIF F immature granulocytes ,absolute 0.02 x10'3 /uL 0.00-0 .05 Not Available [facility] (Lab) [address] [place], [address], 02/02/2024 19:04:22 02/02/20 24 02/02/2024 CBC/C OMPLE TE BLD COUNT W/DIF F nucleated red blood cells 0.0 % -0 Not Available [facility] (Lab) [address] [place], [address], 02/02/2024 19:04:22 02/02/20 24 02/02/2024 CBC/C OMPLE TE BLD COUNT W/DIF F NRBC# 0.00 x10'3 /uL Not Available [facility] (Lab) [address] [place], [address], 02/02/2024 19:04:22 02/02/20 24 02/02/2024 COMPR EHENS MATHEUS METAB OLIC PANEL sodium 137 mmol/ L 137-14 5 Not Available [facility] (Lab) [address] [place], [address], 02/02/2024 19:21:00 02/02/20 24 02/02/2024 COMPR EHENS MATHEUS METAB OLIC PANEL potassium 4.8 mmol/ L 3.5-5. 1 Not Available [facility] (Lab) [address] [place], [address], 02/02/2024 19:21:00 02/02/20 24 02/02/2024 COMPR EHENS MATHEUS METAB OLIC PANEL chloride 107 mmol/ L 98-107 Not Available [facility] (Lab) [address] [place], [address], 02/02/2024 19:21:00 02/02/20 24 02/02/2024 COMPR EHENS MATHEUS METAB OLIC PANEL carbon dioxide 22 mmol/ L 22-30 Not Available [facility] (Lab) [address] [place], [address], 02/02/2024 19:21:00 02/02/20 24 02/02/2024 COMPR EHENS MATHEUS METAB OLIC PANEL anion gap 12.8 mmol/ L 14-22 low Not Available [facility] (Lab) [address] [place], [address], 02/02/2024 19:21:00 02/02/20 24 02/02/2024 COMPR EHENS MATHEUS METAB OLIC PANEL glucose 92 mg/dL 70-99 Not Available [facility] (Lab) [address] [place], [address], 02/02/2024 19:21:00 02/02/20 24 02/02/2024 COMPR EHENS MATHEUS METAB OLIC PANEL BUN 24 mg/dL 8-19 high Not Available [facility] (Lab) [address] [place], [address], 02/02/2024 19:21:00 02/02/20 24 02/02/2024 COMPR EHENS MATHEUS METAB OLIC PANEL creatinine 0.97 mg/dL 0.66-1 .25 Not Available [facility] (Lab) [address] [place], [address], 02/02/2024 19:21:00 02/02/20 24 02/02/2024 COMPR EHENS MATHEUS METAB OLIC PANEL GFR >60 Refer ence Range : [place] ge GFR Healt hy Adult : >60 mL/mi n/1.7 3 m2 Chron ic Kidne y Disea se: 15-60 mL/mi n/1.7 3 m2 Kidne y Failu re: <15/m L/min /1.73 m2 www.n iddk. nih.g ov The MDRD study equat ion has not been valid ated in child janes <18 years of age; pregn ant women ; the elder ly >85 years of age; or in some racia l or ethni c subgr oups, such as Hispa nics. Outsi de the valid ated danuta eters , estim ated GFR is less accur ate, requi ring clini marie judgm ent on a case- by-ca se basis . Clini marie inter preta tion for other races and ages must be made by the clini afsaneh. The MDRD study equat ion has not been valid ated for the evalu ation of serum creat inine relat ed to nutri delores l statu s or medic ation usage . For perso ns <18 years of age, a pedia tric GFR calcu lator is avail able on the F websi te: https ://dwight w.alley steinery.o rg/pr ofess ional s/kdo qi/gf r_cal culat or Not Available [facility] (Lab) [address] [place], [address], 02/02/2024 19:21:00 02/02/20 24 02/02/2024 COMPR EHENS MATHEUS METAB OLIC PANEL alkaline phosphatase 74 U/L 38-126 Not Available [facility] (Lab) [address] [place], [address], 02/02/2024 19:21:00 02/02/20 24 02/02/2024 COMPR EHENS MATHEUS METAB OLIC PANEL alanine aminotransfe rase 34 U/L 0-50 Not Available [facility] (Lab) [address] [place], [address], 02/02/2024 19:21:00 02/02/20 24 02/02/2024 COMPR EHENS MATHEUS METAB OLIC PANEL aspartate aminotransfe rase 35 U/L 15-46 Not Available [facility] (Lab) [address] [place], [address], 02/02/2024 19:21:00 02/02/20 24 02/02/2024 COMPR EHENS MATHEUS METAB OLIC PANEL bilirubin, total 0.80 mg/dL 0.20-1 .30 Not Available [facility] (Lab) [address] [place], [address], 02/02/2024 19:21:00 02/02/20 24 02/02/2024 COMPR EHENS MATHEUS METAB OLIC PANEL calcium 9.2 mg/dL 8.4-10 .2 Not Available [facility] (Lab) [address] [place], [address], 02/02/2024 19:21:00 02/02/20 24 02/02/2024 COMPR EHENS MATHEUS METAB OLIC PANEL total protein 7.4 g/dL 6.3-8. 2 Not Available [facility] (Lab) [address] [place], [address], 02/02/2024 19:21:00 02/02/20 24 02/02/2024 COMPR EHENS MATHEUS METAB OLIC PANEL albumin 4.5 g/dL 3.4-5. 0 Not Available [facility] (Lab) [address] [place], [address], 02/02/2024 19:21:00 02/02/20 24 02/02/2024 COMPR EHENS MATHEUS METAB OLIC PANEL globulin 2.9 g/dL 2.6-4. 2 Not Available [facility] (Lab) [address] [place], [address], 02/02/2024 19:21:00 02/02/20 24 02/02/2024 COMPR EHENS MATHEUS METAB OLIC PANEL A/G ratio 1.6 ratio 1.0-2. 0 Not Available [facility] (Lab) [address] [place], [address], 02/02/2024 19:21:00 02/02/20 24 02/02/2024 LIPID PANEL cholesterol 144 mg/dL 140-19 9 NIH JONO NSUS RECOM MENDA TION FOR ISACC STERO L: ADULT CHILD LOW RISK: <200 <170 BORDE RLINE : <200- 239 ----- HIGH RISK: >240 >200 Not Available [facility] (Lab) [address] [place], [address], 02/02/2024 19:21:05 02/02/20 24 02/02/2024 LIPID PANEL triglyceride s 91 mg/dL 0-150 NIH JONO NSUS REPOR T RECOM MENDA TION FOR TRIGL YCERI DELMA: ADULT CHILD LOW RISK: <150 ----- BODER LINE: 150-1 99 ----- HIGH RISK: >200 ----- Not Available [facility] (Lab) [address] [place], [address], 02/02/2024 19:21:05 02/02/20 24 02/02/2024 LIPID PANEL HDL cholesterol 56 mg/dL 40- Not Available [facility] (Lab) [address] [place], [address], 02/02/2024 19:21:05 02/02/20 24 02/02/2024 LIPID PANEL LDL cholesterol, calculated 70 mg/dL 0-130 NIH JONO NSUS REPOR T RECOM MENDA TIONS FOR LDL: ADULT CHILD LOW RISK <130 <110 (OPTI MAL LDL) <100 ----- BORDE RLINE : 130-1 59 ----- HIGH RISK: >160 >130 A TRIGL YCERI DE RESUL T >400 INVAL IDATE S THE CALCU LATIO N FOR LDL FRACT IONAT ION - THE LDL RESUL T WILL NOT BE REPOR ABILIO. Not Available [facility] (Lab) [address] [place], [address], 02/02/2024 19:21:05 02/02/20 24 02/02/2024 URIC ACID SERUM uric acid 4.7 mg/dL 3.5-8. 5 Not Available [facility] (Lab) [address] [place], [address], 02/02/2024 19:21:09 02/02/20 24 02/02/2024 URINA LYSIS COMPL ETE/I RIS W/RFX color LIGHT- YELLOW Not Available [facility] (Lab) [address] [place], [address], 02/02/2024 19:27:19 02/02/20 24 02/02/2024 URINA LYSIS COMPL ETE/I RIS W/RFX appear CLEAR Not Available [facility] (Lab) [address] [place], [address], 02/02/2024 19:27:19 02/02/20 24 02/02/2024 URINA LYSIS COMPL ETE/I RIS W/RFX specific gravity 1.041 1.001- 1.030 high Not Available [facility] (Lab) [address] [place], [address], 02/02/2024 19:27:19 02/02/20 24 02/02/2024 URINA LYSIS COMPL ETE/I RIS W/RFX pH 5.5 pH_un its 5.0-9. 0 Not Available [facility] (Lab) [address] [place], [address], 02/02/2024 19:27:19 02/02/20 24 02/02/2024 URINA LYSIS COMPL ETE/I RIS W/RFX leukocytes NEGATI VE ronald/u L negati ve- Not Available [facility] [facility] ([facility] [address] [place], [address], 02/02/2024 19:27:19 02/02/20 24 02/02/2024 URINA LYSIS COMPL ETE/I RIS W/RFX nitrite NEGATI VE negati ve- Not Available [facility] (Lab) [address] [place], [address], 02/02/2024 19:27:19 02/02/20 24 02/02/2024 URINA LYSIS COMPL ETE/I RIS W/RFX protein NEGATI VE mg/dL negati ve- Not Available [facility] (Lab) [address] [place], [address], 02/02/2024 19:27:19 02/02/20 24 02/02/2024 URINA LYSIS COMPL ETE/I RIS W/RFX glucose >/=100 0 mg/dL normal - abnormal Not Available [facility] (Lab) [address] [place], [address], 02/02/2024 19:27:19 02/02/20 24 02/02/2024 URINA LYSIS COMPL ETE/I RIS W/RFX ketones NEGATI VE mg/dL negati ve- Not Available [facility] (Lab) [address] [place], [address], 02/02/2024 19:27:19 02/02/20 24 02/02/2024 URINA LYSIS COMPL ETE/I RIS W/RFX urobilinogen NORMAL mg/dL normal - Not Available [facility] (Lab) [address] [place], [address], 02/02/2024 19:27:19 02/02/20 24 02/02/2024 URINA LYSIS COMPL ETE/I RIS W/RFX bilirubin NEGATI VE mg/dL negati ve- Not Available [facility] (Lab) [address] [place], [address], 02/02/2024 19:27:19 02/02/20 24 02/02/2024 URINA LYSIS COMPL ETE/I RIS W/RFX blood NEGATI VE mg/dL negati ve- Not Available [facility] (Lab) [address] [place], [address], 02/02/2024 19:27:19 02/02/20 24 02/02/2024 URINA LYSIS COMPL ETE/I RIS W/RFX white blood cells 0-8 /i??h pfi?? 0-8 Not Available [facility] (Lab) [address] [place], [address], 02/02/2024 19:27:19 02/02/20 24 02/02/2024 URINA LYSIS COMPL ETE/I RIS W/RFX red blood cells 0-4 /i??h pfi?? 0-4 Not Available [facility] (Lab) [address] [place], [address], 02/02/2024 19:27:19 02/02/20 24 02/02/2024 URINA LYSIS COMPL ETE/I RIS W/RFX bacteria NONE Not Available [facility] (Lab) [address] [place], [address], 02/02/2024 19:27:19 02/02/20 24 02/02/2024 URINA LYSIS COMPL ETE/I RIS W/RFX mucous OCCASI ONAL /i??l pfi?? abnormal Not Available [facility] (Lab) [address] [place], [address], 02/02/2024 19:27:19 02/02/20 24 02/02/2024 URINA LYSIS COMPL ETE/I RIS W/RFX squamous epithelial NONE /i??l pfi?? abnormal Not Available [facility] (Lab) [address] [place], [address], 02/02/2024 19:27:19 02/02/20 24 02/02/2024 MICRO ALBUM IN RANDO M URINE microalbumin , urine 6.4 mg/L 0.0-16 .6 Not Available [facility] (Lab) [address] [place], [address], 02/02/2024 19:30:36 02/02/20 24 02/02/2024 VITAM IN D 25-HY DROXY vd25oh 26.7 NG/mL 30-100 low Vitam in D Statu s: Defic ient: <20 ng/mL Insuf ficie nt: 20-29 ng/mL Suffi cient : 30-10 0 ng/mL Not Available [facility] (Lab) [address] [place], [address], 02/02/2024 19:39:57 02/02/20 24 02/02/2024 TSH W/REF GOKUL FT4 TSH with reflex free T4 1.190 uIU/m L 0.465- 4.680 Not Available [facility] (Lab) [address] [place], [address], 02/02/2024 19:53:17 02/02/20 24 02/02/2024 PSA SCREE N PSA medicare screen 1.36 NG/mL 0.00-4 .00 Not Available [facility] (Lab) [address] [place], [address], 02/02/2024 19:53:22 02/02/20 24 02/02/2024 HEMOG LOBIN A1C HA1C 5.6 % 4.0-6. 0 Diabe gaby Scree joshua Crite lexus: <5.7% Consi stent with absen ce of diabe gaby 5.7-6 .4% Consi stent with incre ased risk for diabe gaby (pred iabet es) >OR=6 .5% Consi stent with diabe gaby REFER ENCE: Diabe gaby Care 2016, 39(Estrada ppl.1 ):s13 -s22 Not Available [facility] (Lab) [address] [place], [address], 02/02/2024 20:59:39 Result Notes None recorded. Problems Name Problem SNOMED Code Status Onset Date Resolution Date Notes Provider Name and Address Organization Details Recorded Time Type 2 diabetes mellitus without complicatio n 894814192 Active 2022 Yoni Lazaro MD [address] [facility], [address], [address], [employer] 3 16:41:02 Diabetic peripheral neuropathy 164226271 Active 2022 Yoni Lazaro MD [address] [facility], [address], [address], [employer] 3 16:43:12 Hypertensiv e disorder 12849696 Active 2022 Yoni Lazaro MD [address], [address], [address], [place] [facility] 3 16:43:37 Overweight 765783384 Active 2022 Yoni Lazaro MD [address], [address], [place], [address], [place] [facility] 3 16:45:02 Pain of left shoulder joint 2495030221791 9109 Active 2022 Yoni Lazaro MD [address], [address], [place], [address], [place] [facility] 3 16:46:17 Bilateral wrist pain 7709716747444 9105 Active 2022 Yoni Lazaro MD [address], [address], [place], [address], [place] [facility] 3 16:46:47 Diabetes mellitus 75287459 Active 2022 Yoni Lazaro MD [address], [address], [place], [address], [place] [facility] 3 15:12:07 Hypertrigly ceridemia 712537639 Active 2023 Yoni Lazaro MD [address], [address], [place], [address], [place] [facility] 4 09:25:30 Hyperlipide philomena 69378335 Active 2023 Yoni Lazaro MD [address], [address], [place], [address], [employer] [place] [facility] 4 09:28:09 Vitamin D deficiency 02385774 Active 2024 DAIN Jacinto [address], [address], [place], [address], [place] [facility] 5 09:15:39 Bilateral shoulder joint pain 6793394426528 9104 Active 2024 DAIN Jacinto [address], [address], [place], [address], [facility] [employer] [facility] 5 09:16:12 Erectile dysfunction 679242169 Active 2024 DAIN Jacinto [address], [facility] [address], [place], [address], [facility] [employer] [facility] 5 09:18:02 Notes:Diabetes Problem Notes None recorded. Medical Equipment None Reported. Allergies No known drug allergies Medications Name Sig Start Date Stop Date Status Note LastModified by Organization Details LastModified Time gabapentin 600 mg tablet TAKE 1 TABLET BY MOUTH EVERY 8 HOURS DIRECTED active Not Available Not Available No t Available atorvastati n 10 mg tablet TAKE 1 TABLET BY MOUTH ONCE DAILY AT BEDTIME active Not Available Not Available No t Available azithromyci n 250 mg tablet TAKE 2 TABLETS BY MOUTH ON DAY 1, AND THEN TAKE 1 TABLET BY MOUTH ONCE A DAY ON DAY 2 THROUGH DAY 5 05/25 completed Not Available Not Available Not Available ibuprofen 800 mg tablet TAKE 1 TABLET BY MOUTH EVERY 8 HOURS NEEDED FOR PAIN active Not Available Not Available No t Available ofloxacin 0.3 % eye drops INSTILL 1 TO 2 DROPS TO AFFECTED EYES EVERY 2 TO 4 HOURS FOR 2 DAYS, THEN 1 TO 2 DROPS 4 TIMES DAILY DAYS 3-7 06/29 completed Not Available Not Available Not Available clindamycin HCl 150 mg capsule TAKE 3 CAPSULES BY MOUTH EVERY 8 HOURS FOR 14 DAYS 11/03 completed Not Available Not Available Not Available pioglitazon e 45 mg tablet TAKE 1 TABLET BY MOUTH ONCE DAILY DIRECTED 05/26 completed Not Available Not Available Not Available OneTouch Ultra Test strips USE DIRECTED TO CHECK BLOOD SUGAR 2 TO 3 TIMES A DAY active Not Available Not Available No t Available cephalexin 500 mg capsule TAKE 1 CAPSULE BY MOUTH EVERY 8 HOURS FOR 7 DAYS 12/09 completed Not Available Not Available Not Available lisinopril 10 mg tablet Take 1 tablet every day by oral route as directed for 90 days. 02/25 completed Not Available Not Available Not Available diclofenac sodium 75 mg tablet,ramon yed release Take 1 tablet every 12 hours by oral route as needed for 30 days. 02/23 completed Not Available Not Available Not Available lisinopril 5 mg tablet TAKE 1 TABLET BY MOUTH ONCE DAILY DIRECTED active Not Available Not Available No t Available ergocalcife rol (vitamin D2) 1,250 mcg (50,000 unit) capsule TAKE 1 CAPSULE BY MOUTH ONCE A WEEK active Not Available Not Available No t Available methylpredn isolone 4 mg tablets in a dose pack TAKE BY MOUTH DIRECTED ON INSIDE OF PACKAGE active Not Available Not Available No t Available pioglitazon e 30 mg tablet TAKE 1 TABLET BY MOUTH ONCE DAILY DIRECTED FOR 90 DAYS 11/03 completed Not Available Not Available Not Available metformin ER 500 mg tablet,exte nded release 24 hr TAKE 2 TABLETS BY MOUTH TWICE DAILY DIRECTED active Not Available Not Available No t Available glipizide 5 mg tablet TAKE 1 TABLET BY MOUTH TWICE DAILY WITH MEALS active Not Available Not Available No t Available Adult Low Dose Aspirin 81 mg tablet,ramon yed release Take 1 tablet every day by oral route as directed for 90 days. 2023 active Not Available Not Available Not Avai lable Allergy Relief (diphenhydr amine) 25 mg capsule TAKE 1 TO 2 CAPSULES BY MOUTH AT BEDTIME NEEDED FOR SLEEP 05/25 completed Not Available Not Available Not Available tadalafil 10 mg tablet TAKE 1 TABLET BY MOUTH ONCE DAILY NEEDED active Not Available Not Available No t Available chlorhexidi ne gluconate 0.12 % mouthwash SWISH AND SPIT 15 ML BY MOUTH TWICE DAILY 02/23 completed Not Available Not Available Not Available metformin 06/29 completed Not Available Not Available Not Available Actos 03/31 completed Not Available Not Available Not Available fenofibrate 54 mg tablet TAKE 1 TABLET BY MOUTH ONCE DAILY IN THE MORNING active Not Available Not Available No t Available Jardiance 25 mg tablet TAKE 1 TABLET BY MOUTH ONCE DAILY DIRECTED FOR 90 DAYS active Not Available Not Available No t Available Trulicity 1.5 mg/0.5 mL subcutaneou s pen injector INJECT 1.5 MG SUBCUTANE OUSLY EVERY WEEK DIRECTED. active Not Available Not Available No t Available Trulicity 0.75 mg/0.5 mL subcutaneou s pen injector INJECT 1 SYRINGE SUBCUTANE OUSLY ONCE A WEEK 11/03 completed Not Available Not Available Not Available OneTouch Ultra2 Meter USE DIRECTED active Not Available Not Available No t Available OneTouch Delica Plus Lancet 33 gauge USE DIRECTED 2-3 TIMES DAILY active Not Available Not Available No t Available OneTouch Delica Plus Lancet 30 gauge active Not Available Not Available Not Available Ozempic 0.25 mg or 0.5 mg (2 mg/3 mL) subcutaneou s pen injector Inject 0.25 mg every week by subcutane ous route as directed for 30 days. 12/09 completed Not Available Not Available Not Available Vitals Date Recorded Body height Body mass index (BMI) Body weight Body temperature Heart rate Respiratory rate Oxygen saturation Oxygen saturation in Arterial blood by Pulse oximetry Systolic blood pressure Diastolic blood pressure Provider Name and Address Organization Details Last Updated DateTime 4 177.8 cm 29.3 kg/m2 22875.5 9 g 97.6 [degF] 76 /min 20 /min 96 % 96 % 130 mm[Hg] 70 mm[Hg] So Aguilar RN [facility] [employer] [facility] 4 16:45:03 Date Recorded Body height Body mass index (BMI) Body weight Body temperature Heart rate Respiratory rate Oxygen saturation Oxygen saturation in Arterial blood by Pulse oximetry Systolic blood pressure Diastolic blood pressure Provider Name and Address Organization Details Last Updated DateTime 4 177.8 cm 29.7 kg/m2 49920.3 2 g 98.1 [degF] 78 /min 16 /min 98 % 98 % 132 mm[Hg] 76 mm[Hg] Delfin Gonsales [facility] [employer] [facility] 4 09:55:51 Date Recorded Body height Body mass index (BMI) Body weight Body temperature Oxygen saturation Oxygen saturation in Arterial blood by Pulse oximetry Heart rate Systolic blood pressure Diastolic blood pressure Provider Name and Address Organization Details Last Updated DateTime 4 177.8 cm 29.6 kg/m2 07826.7 3 g 97.4 [degF] 98 % 98 % 88 /min 120 mm[Hg] 80 mm[Hg] Luisa Kebede RN [facility] [employer] [facility] 4 10:11:20 Date Recorded Body height Body mass index (BMI) Body weight Body temperature Heart rate Respiratory rate Oxygen saturation Oxygen saturation in Arterial blood by Pulse oximetry Pain severity - 0-10 verbal numeric rating [Score] - Reported Systolic blood pressure Diastolic blood pressure Provider Name and Address Organization Details Last Updated DateTime 5 177.8 cm 31 kg/m2 90541.6 5 g 97.9 [degF] 82 /min 20 /min 99 % 99 % 0 136 mm[Hg] 76 mm[Hg] So Aguilar RN [facility] [employer] [facility] 5 09:03:51 Date Recorded Body height Body mass index (BMI) Body weight Body temperature Heart rate Oxygen saturation Oxygen saturation in Arterial blood by Pulse oximetry Respiratory rate Pain severity - 0-10 verbal numeric rating [Score] - Reported Systolic blood pressure Diastolic blood pressure Provider Name and Address Organization Details Last Updated DateTime 5 177.8 cm 29.1 kg/m2 40280.6 g 97.1 [degF] 67 /min 99 % 99 % 20 /min 0 152 mm[Hg] 88 mm[Hg] So Aguilar RN [facility] [employer] 5 09:10:19 Social History Question Answer Notes LastModified by Organizat ion Details LastModified Time Tobacco Smoking Status Former Smoker Yoni Lazaro MD [address] [place] [address], [address], [facility] [employer] [facility] [employer] 02/06/2023 15:24:14 Do You Have An Advance Directive? No Information not available 01/16/2023 What Is Your Level Of Alcohol Consumption? Occasional [email or web address] Information not available 02/02/2024 Is Blood Transfusion Acceptable In An Emergency? Yes Information not available 01/16/2023 What Is Your Level Of Caffeine Consumption? Moderate Information not available 11/04/2023 What Is Your Code Status? DNR Information not available 01/16/2023 In The 14 Days Before Symptom Onset, Have You Had Close Contact With A Laboratory-confir med COVID-19 While That Case Was Ill? No Information not available 01/16/2023 In The 14 Days Before Symptom Onset, Have You Had Close Contact With A Person Who Is Under Investigation For COVID-19 While That Person Was Ill? No Information not available 01/16/2023 Are You Currently Employed? Yes Information not available 01/16/2023 What Type Of Diet Are You Following? REGULAR Information not available 01/16/2023 What Is The Highest Grade Or Level Of School You Have Completed Or The Highest Degree You Have Received? 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 No Information no t available 01/16/2023 Do You Use Insect Repellent Routinely? No Information not available 02/24/2024 Where Do You Live? Apartment Information not available 02/24/2024 Do You Have A Medical Power Of Parts Sales Representative? No Information not available 01/16/2023 How Many Children Do You Have? 1 Information not available 02/24/2024 Do You Have Any Pets? Yes Information not available 02/24/2024 What Is Your Relationship Status? Information not available 01/16/2023 Do You Use Your Seat Belt Or Car Seat Routinely? Yes Information not available 01/16/2023 Do You Have Smoke And Carbon Monoxide Detectors In Your Home? Yes Information not available 02/24/2024 Are You Passively Exposed To Smoke? No Information no t available 02/24/2024 Are There Any Smokers In Your House? No Information not available 02/24/2024 Do You Participate In Social Media? No Information not available 01/16/2023 Do You Feel Stressed (tense, Restless, Nervous, Or Anxious, Or Unable To Sleep At Night)? [id number] Information not available 01/16/2023 Do You Use Any Illicit Or Recreational Drugs? No [email or web address] Information not available 02/02/2024 Do You Use Sunscreen Routinely? No Information not available 01/16/2023 Have You Recently Traveled Abroad? No Information not available 01/16/2023 Sex: Female Functional Status None recorded. Mental Status None recorded. Family History Relationship Description Onset Age of this Age Resolved Age Notes LastModified by Organization Details LastModified Time Father No current problems or disability Not available 01/16 16:31:49 Mother No current problems or disability Not available 01/16 16:31:50 Medical History Condition Response BLINDNESS N RHEUMATIC FEVER N BLADDER PROBLEMS N KIDNEY STONES N MRSA N OTHER # 1 N POLIO N LUNG DISEASE/DISORDER N HISTORY OF DRUG ABUSE N RADIATION / CHEMOTHERAPY N COPD N Other # 2 N BLOOD DISEASES N SURGERY N EAR OR HEARING PROBLEMS N MUMPS N SHINGLES N DEPRESSION (INCLUDING POST ) N FEMALE PROBLEMS / INFECTIONS N BOWEL PROBLEMS N FAILED BACK SYNDROME N STROKE/TIA N THYROID DISEASE N ULCERS N BENIGN PROSTATIC HYPERPLASIA N MEASLES N CERVICALGIA N HYPOTENSION N TB SKIN TEST N MYOCARDIAL INFARCTION N PARAPELGIA N OBESITY N GERD/NAUSEA N ANEURYSM N URINARY/BLADDER/KIDNEY PROBLEMS N CORONARY ARTERY DISEASE (CAD) N MENIERE'S DISEASE N Do you have Advance directive? N ADDICTION CONCERNS N ENDOMETRIOSIS N USE OF BLOOD THINNERS N SKIN PROBLEMS N EMPHYSEMA N GASTROINTESTINAL DISORDER N PERIPHERAL ARTERY DISEASE N MUSCLE,JOINT OR BONE PROBLEMS N GASTROINTESTINAL BLEEDING N BLOOD CLOTS N ASTHMA N Abdominal Pain N CATARACTS N ARTERIAL INSUFFICIENCY N ERECTILE DYSFUNCTION N GI PROBLEMS N CHF N Low Testosterone N NEUROPATHY N INFERTILITY N AIDS/HIV N FRACTURES N CHEMOTHERAPY / RADIATION N VISION/EYE PROBLEMS N LIVER DISEASE N HYPERTENSION Y TOURETTE'S N ANXIETY DISORDER N BLOOD TRANSFUSION N ANEMIA/BLOOD DISORDER N CHRONIC EAR INFECTIONS N BRONCHITIS N TUBERCULOSIS N GLAUCOMA N FOOT PROBLEM N DIVERTICULITIS N CHICKENPOX N SLEEP APNEA N BACK INJECTIONS N ALLERGIES/HAYFEVER N INFECTIOUS DISEASE N HEART ARRHYTHMIA N PROSTATE N ESRD N INSOMNIA N HIGH CHOLESTEROL / HYPERLIPIDEMIA Y HYPERTHYROIDISM N EYE PROBLEMS N PVD N EATING DISORDER N EDEMA N CHRONIC PAIN SYNDROME N CAROTID BLOCKAGE N CONSTIPATION N BACK / NECK PROBLEMS N HAVE YOU BEEN HOSPITALIZED OR SEEN IN [facility] IN THE PAST YEAR ? N ATHEROSCLEROSIS N BREAST PROBLEMS N DIALYSIS N POLYCYSTIC OVARIES N ECZEMA N FIBROMYALGIA N OSTEOPOROSIS N ARTHRITIS N NO SIGNIFICANT PAST MEDICAL HISTORY N APPENDICITIS N DIABETES, TYPE Y BAD TEETH N VON WILLIBRAND'S DISEASE N HEARTBURN / REFLUX N ADD/ADHD N AUTISM SPECTRUM DISORDER (ASD) N POST LAMINECTOMY SYNDROME N HEPATITIS / LIVER DISEASE N PULMONARY DISEASE N GOUT N SLEEP DISORDER N ALZHEIMER'S DISEASE N PAIN N HERPES N DEMENTIA N HEADACHES/MIGRAINES N SEIZURES/EPILEPSY N VASCULAR DISEASE N PACEMAKER N DIZZINESS N HEART DISEASE/HEART PROBLEMS N KIDNEY DISEASE N DEVELOPMENTAL OR BEHAVIORAL DISORDERS N MULTIPLE SCLEROSIS N SCARLET FEVER N MENTAL DISORDER/ILLNESS N NEUROPSYCHOLOGICAL N CARDIAC ARRHYTHMIA N CANCER: SPECIFY N PNEUMONIA N ATRIAL FIBRILLATION N Gall Stones N PULMONARY EMBOLISM N AUTOIMMUNE DISEASE N Past Encounters Encounter ID Performer Location Encounter Start Date Encounter Closed Date Diagnosis/Indication Diagnosis SNOMED-CT Code Diagnosis ICD10 Code Diagnosis Note [id number] Yoni Lazaro MD [address] [address] 01/16/2023 16:06:07 01/16/2023 16:56:31 Type 2 diabetes mellitus without complication 323475255 E11.9 Diabetic p eripheral neuropathy 632432021 E11.40 Hypertensive disorder 38 133138 I10 Overweight 112396760 E66 .3 Pain of le ft shoulder joint 0131705370 5010908 M25.512 Bilateral wrist pain 312 2334721 2137124 M25.160 [id number] Yoni Lazaro MD [address] [address] 02/06/2023 14:58:43 02/06/2023 15:28:44 Adult health examination 823765280 Z00.00 Bilateral wrist pain 546 4169781 5420366 M25.531 Diabetic p eripheral neuropathy 350265992 E11.40 Type 2 nilay betes mellitus without complication 632988693 E11.9 Diabetes mellitus 544380 09 E11.9 [id number] Yoni Lazaro MD [address] [address] 02/25/2023 09:14:58 02/25/2023 10:03:19 Bilateral wrist pain 3290246150 8017957 M25.531 Diabetic p eripheral neuropathy 620915538 E11.40 Type 2 nilay betes mellitus without complication 650250033 E11.9 Diabetes mellitus 405591 09 E11.9 Hypertensive disorder 38 965652 I10 Pain of le ft shoulder joint 4922345104 7044655 M25.865 [id number] Yoni Lazaro MD [address] [address] 03/20/2023 08:40:16 03/20/2023 14:11:34 [id number] Yoni Lazaro MD [address] [address] 03/31/2023 09:07:20 03/31/2023 09:33:43 Type 2 diabetes mellitus without complication 047931544 E11.9 Diabetic p eripheral neuropathy 751772983 E11.40 Hypertensive disorder 38 560095 I10 Bilateral wrist pain 707 9132275 2720925 M25.531 Diabetes mellitus 231596 09 E11.9 Pain of le ft shoulder joint 6220943383 4796791 M25.512 Hypertriglyceridemia 302 144277 E78.2 Hyperlipidemia 49105172 E78.5 Overweight 097153071 E66 .3 [id number] Yoni Lazaro MD [address] [address] 06/30/2023 09:22:36 06/30/2023 09:44:50 Type 2 diabetes mellitus without complication 205015019 E11.9 Diabetic p eripheral neuropathy 404655912 E11.40 Hypertensive disorder 38 919445 I10 Bilateral wrist pain 863 0495177 6213924 M25.531 Diabetes mellitus 358161 09 E11.9 Pain of le ft shoulder joint 9248948218 3031727 M25.512 Hypertriglyceridemia 302 408195 E78.2 Hyperlipidemia 00339973 E78.5 Overweight 843260820 E66 .3 [id number] Yoni Lazaro MD [address] [address] 11/04/2023 16:38:11 11/04/2023 17:09:32 Type 2 diabetes mellitus without complication 265051239 E11.9 Diabetic p eripheral neuropathy 650285056 E11.40 Hypertensive disorder 38 523682 I10 Bilateral wrist pain 823 1295287 9171865 M25.531 Diabetes mellitus 017199 09 E11.9 Pain of le ft shoulder joint 4544809008 1315219 M25.512 Hypertriglyceridemia 302 956625 E78.2 Hyperlipidemia 12897425 E78.5 Overweight 357484236 E66 .3 [id number] Yoni Lazaro MD [address] [place] [address] 12/10/2023 09:26:09 12/10/2023 10:14:06 Type 2 diabetes mellitus without complication 654833118 E11.9 Hypertensive disorder 38 325948 I10 Diabetic p eripheral neuropathy 600808152 E11.40 Bilateral wrist pain 989 7589802 4082778 M25.531 Chronic Diabetes mellitus 560620 09 E11.9 Pain of le ft shoulder joint 9472349464 8556429 M25.512 Chronic Hypertriglyceridemia 302 314227 E78.2 Hyperlipidemia 48799541 E78.5 Overweight 871703304 E66 .3 [id number] Yoni Lazaro MD [address] [address] 02/02/2024 10:02:42 02/02/2024 10:31:52 Hypertensive disorder 44452799 I10 Type 2 nilay betes mellitus without complication 377972543 E11.9 Diabetic p eripheral neuropathy 411417616 E11.40 Bilateral wrist pain 580 3796180 8368179 M25.531 Chronic Diabetes mellitus 572886 09 E11.9 Pain of le ft shoulder joint 9713051608 5767127 M25.512 Chronic Hypertriglyceridemia 302 214108 E78.2 Hyperlipidemia 11993181 E78.5 Overweight 280221641 E66 .3 Adult [facility] th examination 425621554 Z00.00 [id number] Yoni Lazaro MD [address] [address] 02/24/2024 08:52:31 02/24/2024 09:24:37 Bilateral wrist pain 9223128347 3605610 M25.531 M25.532 Carpal tunnel, worsening. Numbness and tingling in KATIE hands Bilateral shoulder joint pain 1248849599 7063105 M25.511 M25.512 Pain with limited ROM, difficulty with ADLs like putting on his shirt Vitamin D deficiency 347 01699 E55.9 asymptomat ic, prefers weekly supplement Diabetic r etinal eye exam not done 3856269819 103 Z53.9 Has not seen opthamolog y in a few years, would like insurance referral. [id number] Yoni Lazaro MD [facility] [place] [address] [place] [address] 05/25/2024 08:55:08 05/25/2024 10:00:49 Type 2 diabetes mellitus without complication 483159344 E11.9 Would like to stop Actos pending A1C Erectile dysfunction 860 030776 F52.21 Hyperlipidemia 56527508 E78.5 Health Concerns Section Related Observation LastModified by Organization Detai ls LastModified Time None Recorded Concern Status LastModified by Organization Details LastModified Time None Recorded Advance Directives Directive N: Payers Encounter Date Sequence Insurance Name Policy Number Policy Perea Covered Member ID Perea Member ID Guarantor Name 11/04/2023 1 [employer] [place] ON [place] AFTER 2020 (MEDICAID REPLACEMENT - HMO) Tomasz Bean [id number] Tomasz Bean 12/10/2023 1 [employer] [place] 2020 ([place]ICA[place] REPLACEMENT - HMO) Tomasz Bean [id number] Tomasz Bean 02/02/2024 1 [employer] [place] AFTER 2020 ([place]ICAID REPLACEMENT - HMO) Tomasz Bean [id number] Tomasz Bean 02/24/2024 1 [employer] [place] ON [place] 2020 (MEDICAID REPLACEMENT - HMO) Tomasz Bean [id number] Tomasz Bean 05/25/2024 1 [employer] [place] (MEDICAID REPLACEMENT - HMO) Tomasz Bean [id number] Tomasz Bean Notes Date Note Type Note Provider Name and Address Organization Details Recorded Time 11/04/2023 text/html Pt is here for f /u on his labs & x-rays. Doing overall better. Denies any problem with meds. Denies any new concern. Pt has not gone for labs yet. Pt says he has some insurance issues. C/o chronic Lt shoulder pain for last several years. C/o b/l wrist pain for last several years. Denies any workman's comp. Yoni Lazaro MD [address] [place] [address], [place] [address], [place], [address], [employer] 11/04/2023 17:04:04 12/10/2023 text/html Pt is here for f /u on his labs and chronic conditions. Doing overall better. Denies any problem with meds. Denies any new concern. Pt has not gone for labs yet. Pt says he has some insurance issues and then he got very busy with his work. Pt has not seen Ortho yet. C/o chronic Lt shoulder pain for last several years. C/o b/l wrist pain for last several years. Denies any workman's comp. Yoni Lazaro MD [address], [place], [address], [employer] 12/10/2023 10:11:35 02/02/2024 text/html Pt is here for h is annual exam. Doing overall better. Denies any problem with meds. Denies any new concern. Pt has not seen Ortho yet. C/o chronic Lt shoulder pain for last several years. C/o b/l wrist pain for last several years. Denies any workman's comp. Yoni Lazaro MD [address], [place], [address], [employer] 02/02/2024 10:26:32 02/24/2024 text/html Arian Bean is a 53 year old M patient here today to FU on labs 02/02/24. Hypertension, BP on arrival 136/76. Declines headaches, dizziness, light headedness. Admits to constant tinnitus. Type 2 DM, well controlled with current meds (Trulicity), A1C 5.6 Vitamin D deficiency, 26.7. Has concerns with carpal tunnel. KATIE wrist pain with numbness and tingling in KATIE hands. Concerns with KATIE shoulder pain, limited ROM. DAIN Jacinto [address], [place], [address], [employer] 02/24/2024 09:24:54 05/25/2024 text/html Arian Bean is a 53 year old male patient here today for multiple concerns type 2 DM, notes that he occasionally has low blood sugars, lowest 46 and was clammy. Would like to stop Actos if possible. Concerns with erectile dysfunction. Would like to take something for this. Mariana Lin, DAIN [address] [facility] [address], [place], [address], [place] [facility] 05/25/2024 10:13:39
--- OUTSIDE RECORDS SUMMARY | 2024-06-23 09:07 | XMS_ITS | Patient Health Record ---
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
[2024-06-23 09:28] LABS: EDCOVIDSCREEN Negative (Negative); EDINFLUASCREEN Negative (Negative); EDINFLUBSCREEN Negative (Negative); EDSTREPNEGPOS1 Negative (Negative)
== END 2024-06-23 09:35 | disposition home or self-care (01) ==
PROVIDERS: Emergency Provider Nurse Practitioner Family; PCP Family Medicine
DX: J02.8 Acute pharyngitis due to other specified organisms (principal); Z20.822 Contact with and (suspected) exposure to COVID-19; E11.9 Type 2 diabetes mellitus without complications; I10 Essential (primary) hypertension; E78.00 Pure hypercholesterolemia, unspecified; Z87.891 Personal history of nicotine dependence; Z79.82 Long term (current) use of aspirin; Z79.84 Long term (current) use of oral hypoglycemic drugs
CPT/HCPCS: 87081; 87426; 87804; 87880; 99213; G0463

== ENCOUNTER 2024-08-27 08:18 | Emergency (ER) | payer SELFPAY ==
--- OUTSIDE RECORDS SUMMARY | 2024-08-27 08:22 | XMS_ITS | Data Portability ---
Author Organization [place] [employer], Main Office Address [address] [place] [id number] Care Team Providers Care Collateral Analyst Name Role Phone YONI LAZARO Primary Care [...] before next visit. Annual labs in 02/09. [email or web address] Not available 11/04/2023 17:03:36 12/10/2023 12/10/2023 53 [...] before next visit. Annual labs in 02/09. Not available 12/10/2023 10:07:46 02/02/2024 02/02/2024 53 [...] Pt declined for cxr. Will refer to Baseball Pitcher. All meds verified with pt. Meds as directed. Cont ice pack & b/l wrist splint as directed prn. Diet and exercise explained in detail. BP & DM diary education given and call us if any concerns. F/u with Baseball Pitcher as per schedule. F/u with Ortho as [...] in 2-3 weeks. Annual labs in 02/10. [email or web address] Not available 02/02/2024 10:20:35 Plan of Treatment Reminders Order Date Submit Date Provider Last Modified By Organization Details Last Modified Time Details Appointments Follow Up 15 2024 08:00A DAIN Corona Not available Not available Not available Lab glycohemo globin, total, blood 2024 025 [facility] (Lab), [address] [place], [address], 08/24/2024 08:13:52 lipid panel, serum [facility] [address] [place], [address], 05/26/2024 05:04:52 uric acid, serum or plasma [address] (Lab), [address] [place], [address], 02/02/2024 11:44:12 vitamin D3, 25-hydrox y, serum [address] (Lab), [address] [place], [address], 02/02/2024 11:44:41 CMP, serum or plasma [address] (Lab), [address] [place], [address], 02/02/2024 11:22:23 CBC w/ auto diff [address] (Lab), [address] [place], [address], 02/02/2024 11:40:55 lipid panel, blood [address] (Lab), [address] [place], [address], 02/04/2024 10:09:37 TSH, serum, reflex free T4 [id number] (Lab), [address] [place], [address], 02/04/2024 10:09:37 PSA, serum or plasma [address] (Lab), [address] [place], [address], 02/02/2024 11:42:04 urinalysi s complete, reflex culture [address] (Lab), [address] [place], [address], 02/02/2024 11:42:40 glycohemo globin, total, blood [address] (Lab), [address] [place], [address], 02/02/2024 11:43:15 microalbu min, urine [address] (Lab), [address] [place], [address], 02/02/2024 11:43:44 lipid panel, serum 2023 024 [facility] (Lab), [address] [place], [address], 12/11/2023 08:15:25 glycohemo globin, total, blood 2023 024 [facility] ([facility] [address] [place], [address], 02/02/2024 20:59:40 Referral ophthalmo logist referral - Please call patient to schedule an appointme nt. Thank you. [email or web address] [facility], [address], [place], [address], 03/24/2024 08:50:32 podiatris t referral - Please call patient to schedule an appointme nt. Thank you. 2023 024 [email or web address] [facility] [place], [address] [facility] [address], [address], [place], [address], 03/23/2024 08:37:54 orthopedi c surgeon referral - Please call patient to schedule an appointme nt. 2023 024 [email or web address] [facility], [address] [facility] [address], [place], [address], 12/02/2023 08:44:17 Procedures None recorded. Surgeries None recorded. Imaging XR, shoulder, 2 or more view - Please XR KATIE shoulders 2024 025 [email or web address] [address] [facility], [address], [place], [address], 03/02/2024 09:00:41 XR, wrist, 3 or more view - Please XR KATIE wrists 2024 025 [email or web address] [address] [facility], [address], [place], [address], 03/02/2024 09:00:41 Medication Orders tadalafil 10 mg tablet 2024 025 [facility], [address], [place], [address], 05/25/2024 09:41:44 Trulicity 1.5 mg/0.5 mL subcutane ous pen injector 2024 025 [facility], [address] [place], [address], 05/25/2024 09:41:45 ergocalci ferol (vitamin D2) 1,250 mcg (50,000 unit) capsule 2024 025 [facility], [address] [place], [address], 02/24/2024 09:18:47 fenofibra te 54 mg tablet 2023 024 [facility], [address] [place] [address], [address], 02/02/2024 10:17:09 lisinopri l 5 mg tablet 2023 024 [facility], [address] [place] [address], [address], 02/02/2024 10:17:11 gabapenti n 600 mg tablet 2023 024 [facility], [facility] [place], [address], 02/02/2024 10:17:11 atorvasta tin 10 mg tablet 2023 024 [facility], [address] [place], [address], 02/02/2024 10:17:10 diclofena c sodium 75 mg tablet,de layed release 2023 024 [facility], [address] [place], [address], 02/24/2024 09:00:59 glipizide 5 mg tablet 2023 [facility], [address] [place], [address], 02/02/2024 10:17:10 Jardiance 25 mg tablet 2023 024 [facility], [address] [place] [address], [address], 02/02/2024 10:17:16 metformin ER 500 mg tablet,ex tended release 24 hr 2023 [facility], [address] [place] [address], [id number], 02/02/2024 10:17:10 Adult Low Dose Aspirin 81 mg tablet,de layed release 2023 [facility], [address] [place] [address], [address], 02/02/2024 10:17:08 pioglitaz one 45 mg tablet 2023 024 [facility], [address] [place] [address], [address], 05/26/2024 09:31:16 Trulicity 1.5 mg/0.5 mL subcutane ous pen injector 2023 [facility], [address] [place] [address], [address], 02/02/2024 10:17:09 fenofibra te 54 mg tablet 2023 024 [facility], [address] [place] [address], [address], 12/10/2023 10:04:14 lisinopri l 5 mg tablet 2023 024 [facility], [address] [place] [address], [address], 12/10/2023 10:04:13 gabapenti n 600 mg tablet 2023 [facility] [address], [address] [place] [address], [address], 12/10/2023 10:04:13 atorvasta tin 10 mg tablet 2023 [facility] [address], [address] [place] [address], [address], 12/10/2023 10:04:15 diclofena c sodium 75 mg tablet,de layed release [address], [address] [place] [address], [address], 02/24/2024 09:00:59 glipizide 5 mg tablet 2023 024 [email or web address] [facility] [address], [address] [place] [address], [address], 12/10/2023 10:06:24 Jardiance 25 mg tablet 2023 024 [facility] [address], [address] [place] [address], [address], 12/10/2023 10:04:15 metformin ER 500 mg tablet,ex tended release 24 hr 2023 024 [facility] [address], [address] [place] [address], [address], 12/10/2023 10:04:20 Adult Low Dose Aspirin 81 mg tablet,de layed release 2023 024 [facility] [address], [address] [place] [address], [address], 12/10/2023 10:04:13 pioglitaz one 45 mg tablet [address], [address] [place] [address], [address], 05/26/2024 09:31:16 Trulicity 1.5 mg/0.5 mL subcutane ous pen injector 2023 024 [facility] [address], [address] [place] [address], [address], 12/10/2023 10:04:14 fenofibra te 54 mg tablet 2023 024 [facility] [address], [address] [place] [address], [address], 11/04/2023 16:55:47 lisinopri l 5 mg tablet 2023 024 [facility] [address], [address] [place] [address], [address], 11/04/2023 16:55:53 gabapenti n 600 mg tablet 2023 024 [facility] [address], [address] [place] [address], [address], 11/04/2023 16:55:49 atorvasta tin 10 mg tablet 2023 024 [facility] [address], [address] [place] [address], [address], 11/04/2023 16:55:48 diclofena c sodium 75 mg tablet,de layed release 2023 024 [facility] [address], [address] [place] [address], [address], 02/24/2024 09:00:59 glipizide 5 mg tablet 2023 024 [facility] [address], [address] [place] [address], [address], 11/04/2023 16:55:56 Jardiance 25 mg tablet 2023 024 [facility] [address], [address] [place] [address], [address], 11/04/2023 16:55:48 metformin ER 500 mg tablet,ex tended release 24 hr 2023 024 [facility], [facility] [place], [address], 11/04/2023 17:02:59 Adult Low Dose Aspirin 81 mg tablet,de layed release 2023 024 [facility], [address] [place] [address], [address], 11/04/2023 16:55:54 pioglitaz one 45 mg tablet 2023 024 [facility] [address], [address] [place] [address], [address], 05/26/2024 09:31:16 Ozempic 0.25 mg or 0.5 mg (2 mg/3 mL) subcutane ous pen injector 2023 024 [email or web address] [facility] [address], [address] [place] [address], [address], 12/10/2023 10:01:02 Patient TargetsNo targets recorded. Patient Instructions Encounter Date Encounter Id Patient Instructions Last Modified By Organization Details Last Modified Time 11/04/2023 [id number] When You Want to Lose Weight: Care Instructions [email or web address] Not available 11/04/2023 17:01:18 12/10/2023 [id number] When You Want to Lose Weight: Care Instructions Not available 12/10/2023 10:04:01 02/02/2024 [id number] When You Want to Lose Weight: Care Instructions [email or web address] Not available 02/02/2024 10:16:56 Reason for Referral Orthopedic Surgeon Referral for Pain of left shoulder joint Chronic Lt shoulder pain, x-ray neg, PT done in the past. Please call patient to schedule an appointment. Referring Physician: Yoni Lazaro, Family Medicine, Encounter Date: 11/04/2023 [facility] Referral for Type 2 diabetes mellitus without complication Please call patient to schedule an appointment. Thank you. Referring Physician: Yoni Lazaro, [facility], Encounter Date: 02/02/[address] [employer] Referral for Diabetic retinal eye exam not done Please call patient to schedule an appointment. Thank you. Referring Physician: Mariana Lin [facility], Encounter Date: 02/24/2024 Results Created Date Observation Date Name Description Value Unit Range Abnormal Flag Note LastModifiedBy Organization Detail LastModifiedTime 02/02/20 24 02/02/2024 CBC/C OMPLE TE BLD COUNT W/DIF F white blood cells 7.3 x10'3 /uL 4.2-10 .8 Not Available [facility] (Lab) [address] [place], [address], 02/02/2024 19:04:22 02/02/20 24 02/02/2024 CBC/C OMPLE TE BLD COUNT W/DIF F red blood cells 5.31 x10'6 /uL 4.10-5 .80 Not Available [facility] (Lab) [address] [place], [address], 02/02/2024 19:04:22 02/02/20 24 02/02/2024 CBC/C OMPLE TE BLD COUNT W/DIF F hemoglobin 16.6 g/dL 13.2-1 7.0 Not Available [facility] (Lab) [address] [place], [address], 02/02/2024 19:04:22 02/02/20 24 02/02/2024 CBC/C OMPLE TE BLD COUNT W/DIF F hematocrit 47.0 % 39.3-5 0.0 Not Available [facility] (Lab) [address] [place], [address], 02/02/2024 19:04:22 02/02/20 24 02/02/2024 CBC/C OMPLE TE BLD COUNT W/DIF F mean red cell volume 88.5 fL 80.0-9 7.0 Not Available [facility] (Lab) [address] [place], [address], 02/02/2024 19:04:22 02/02/20 24 02/02/2024 CBC/C OMPLE TE BLD COUNT W/DIF F mean red cell hemoglobin 31.3 pg 27.0-3 3.0 Not Available [facility] (Lab) [address] [place], [address], 02/02/2024 19:04:22 02/02/20 24 02/02/2024 CBC/C OMPLE TE BLD COUNT W/DIF F mean RBC HGB concentratio n 35.3 g/dL 31.0-3 6.0 Not Available [facility] (Lab) [address] [place], [address], 02/02/2024 19:04:22 02/02/20 24 02/02/2024 CBC/C OMPLE TE BLD COUNT W/DIF F red cell distribution width 12.7 % 11.8-1 5.5 Not Available [facility] (Lab) [address] [place], [address], 02/02/2024 19:04:22 02/02/20 24 02/02/2024 CBC/C OMPLE TE BLD COUNT W/DIF F platelets 166 x10'3 /uL 150-40 0 Not Available [facility] (Lab) [address] [place], [address], 02/02/2024 19:04:22 02/02/20 24 02/02/2024 CBC/C OMPLE TE BLD COUNT W/DIF F mean platelet volume 10.1 fL 9.0-12 .4 Not Available [facility] (Lab) [address] [place], [address], 02/02/2024 19:04:22 02/02/20 24 02/02/2024 CBC/C OMPLE TE BLD COUNT W/DIF F neutrophils 64.1 % 39.0-7 2.0 Not Available [facility] (Lab) [address] [place], [address], 02/02/2024 19:04:22 02/02/20 24 02/02/2024 CBC/C OMPLE TE BLD COUNT W/DIF F lymphocytes 25.8 % 16.0-4 7.0 Not Available [facility] (Lab) [address] [place], [address], 02/02/2024 19:04:22 02/02/20 24 02/02/2024 CBC/C OMPLE TE BLD COUNT W/DIF F monocytes 8.1 % 5.0-12 .0 Not Available [facility] (Lab) [address] [place], [address], 02/02/2024 19:04:22 02/02/20 24 02/02/2024 CBC/C OMPLE TE BLD COUNT W/DIF F eosinophils 1.2 % 1.0-7. 0 Not Available [facility] (Lab) [address] [place], [address], 02/02/2024 19:04:22 02/02/20 24 02/02/2024 CBC/C OMPLE TE BLD COUNT W/DIF F basophils 0.5 % 0.0-2. 0 Not Available [facility] (Lab) [address] [place], [address], 02/02/2024 19:04:22 02/02/20 24 02/02/2024 CBC/C OMPLE TE BLD COUNT W/DIF F immature granulocytes 0.3 % 0.00-0 .50 Not Available [facility] (Lab) [address] [place], [address], 02/02/2024 19:04:22 02/02/20 24 02/02/2024 CBC/C OMPLE TE BLD COUNT W/DIF F neutrophils, absolute count 4.68 x10'3 /uL 1.5-8. 0 Not Available [facility] (Lab) [address] [place], [address], 02/02/2024 19:04:22 02/02/20 24 02/02/2024 CBC/C OMPLE TE BLD COUNT W/DIF F lymphocytes, absolute count 1.88 x10'3 /uL 1.07-3 .43 Not Available [facility] (Lab) [address] [place], [address], 02/02/2024 19:04:22 02/02/20 24 02/02/2024 CBC/C OMPLE TE BLD COUNT W/DIF F monocytes, absolute count 0.59 x10'3 /uL 0.29-0 .99 Not Available [facility] (Lab) [address] [place], [address], 02/02/2024 19:04:22 02/02/20 24 02/02/2024 CBC/C OMPLE TE BLD COUNT W/DIF F eosinophils, absolute count 0.09 x10'3 /uL 0.02-0 .53 Not Available [facility] (Lab) [address] [place], [address], 02/02/2024 19:04:22 02/02/20 24 02/02/2024 CBC/C OMPLE TE BLD COUNT W/DIF F basophils, absolute count 0.04 x10'3 /uL 0.01-0 .08 Not Available [facility] (Lab) [address] [place], [address], 02/02/2024 19:04:22 02/02/20 24 02/02/2024 CBC/C OMPLE TE BLD COUNT W/DIF F immature granulocytes ,absolute 0.02 x10'3 /uL 0.00-0 .05 Not Available [facility] (Lab) [address] [place], [address], 02/02/2024 19:04:22 02/02/20 24 02/02/2024 CBC/C OMPLE TE BLD COUNT W/DIF F nucleated red blood cells 0.0 % -0 Not Available [facility] (Lab) [address] [place], [address], 02/02/2024 19:04:22 02/02/20 24 02/02/2024 CBC/C OMPLE TE BLD COUNT W/DIF F NRBC# 0.00 x10'3 /uL Not Available [facility] (Lab) [address] [place], [address], 02/02/2024 19:04:22 02/02/20 24 02/02/2024 COMPR EHENS MATHEUS METAB OLIC PANEL sodium 137 mmol/ L 137-14 5 Not Available [facility] (Lab) [address] [place], [address], 02/02/2024 19:21:00 02/02/20 24 02/02/2024 COMPR EHENS MATHEUS METAB OLIC PANEL potassium 4.8 mmol/ L 3.5-5. 1 Not Available [facility] (Lab) [address] [place], [address], 02/02/2024 19:21:00 02/02/20 24 02/02/2024 COMPR EHENS MATHEUS METAB OLIC PANEL chloride 107 mmol/ L 98-107 Not Available [facility] (Lab) [address] [place], [address], 02/02/2024 19:21:00 02/02/20 24 02/02/2024 COMPR EHENS MATHEUS METAB OLIC PANEL carbon dioxide 22 mmol/ L 22-30 Not Available [facility] (Lab) [address] [place], [address], 02/02/2024 19:21:00 02/02/20 24 02/02/2024 COMPR EHENS MATHEUS METAB OLIC PANEL anion gap 12.8 mmol/ L 14-22 low Not Available [facility] (Lab) [address] [place], [address], 02/02/2024 19:21:00 02/02/20 24 02/02/2024 COMPR EHENS MATHEUS METAB OLIC PANEL glucose 92 mg/dL 70-99 Not Available [facility] (Lab) [address] [place], [address], 02/02/2024 19:21:00 02/02/20 24 02/02/2024 COMPR EHENS MATHEUS METAB OLIC PANEL BUN 24 mg/dL 8-19 high Not Available [facility] (Lab) [address] [place], [address], 02/02/2024 19:21:00 02/02/20 24 02/02/2024 COMPR EHENS MATHEUS METAB OLIC PANEL creatinine 0.97 mg/dL 0.66-1 .25 Not Available [facility] (Lab) [address] [place], [address], 02/02/2024 19:21:00 02/02/20 24 02/02/2024 COMPR EHENS MATHEUS METAB OLIC PANEL GFR >60 Refer ence Range : Maljamar ge GFR Healt hy Adult : >60 [...] calcu lator is avail able on the [facility] websi te: https ://ww w.kid celi.o rg/pr ofess ional s/kdo qi/gf r_cal culat or Not Available [facility] (Lab) [address] [place], [address], 02/02/2024 19:21:00 02/02/20 24 02/02/2024 COMPR EHENS MATHEUS METAB OLIC PANEL alkaline phosphatase 74 U/L 38-126 Not Available [facility] (Lab) [address] [place], [address], 02/02/2024 19:21:00 02/02/20 24 02/02/2024 COMPR EHENS MATHEUS METAB OLIC PANEL alanine aminotransfe rase 34 U/L 0-50 Not Available [facility] (Lab) [address] [place], [address], 02/02/2024 19:21:00 02/02/20 24 02/02/2024 COMPR EHENS MATHEUS METAB OLIC PANEL aspartate aminotransfe rase 35 U/L 15-46 Not Available [facility] (Lab) [address] [place], [address], 02/02/2024 19:21:00 02/02/20 24 02/02/2024 COMPR EHENS MATHEUS METAB OLIC PANEL bilirubin, total 0.80 mg/dL 0.20-1 .30 Not Available [facility] (Lab) [address] [place], [address], 02/02/2024 19:21:00 02/02/20 24 02/02/2024 COMPR EHENS MATHEUS METAB OLIC PANEL calcium 9.2 mg/dL 8.4-10 .2 Not Available [facility] (Lab) [address] [place], [address], 02/02/2024 19:21:00 02/02/20 24 02/02/2024 COMPR EHENS MATHEUS METAB OLIC PANEL total protein 7.4 g/dL 6.3-8. 2 Not Available [facility] (Lab) [address] [place], [address], 02/02/2024 19:21:00 02/02/20 24 02/02/2024 COMPR EHENS MATHEUS METAB OLIC PANEL albumin 4.5 g/dL 3.4-5. 0 Not Available [facility] (Lab) [address] [place], [address], 02/02/2024 19:21:00 02/02/20 24 02/02/2024 COMPR EHENS MATHEUS METAB OLIC PANEL globulin 2.9 g/dL 2.6-4. 2 Not Available [facility] (Lab) [address] [place], [address], 02/02/2024 19:21:00 02/02/20 24 02/02/2024 COMPR EHENS MATHEUS METAB OLIC PANEL A/G ratio 1.6 ratio 1.0-2. 0 Not Available [facility] (Lab) [address] [place], [address], 02/02/2024 19:21:00 02/02/20 24 02/02/2024 LIPID PANEL cholesterol 144 mg/dL 140-19 9 NIH JONO NSUS RECOM MENDA TION FOR ISACC STERO L: ADULT CHILD LOW RISK: <200 <170 BORDE RLINE : <200- 239 ----- HIGH RISK: >240 >200 Not Available [facility] (Lab) [address] [place], [address], 02/02/2024 19:21:05 02/02/20 24 02/02/2024 LIPID PANEL triglyceride s 91 mg/dL 0-150 NIH JONO NSUS REPOR T RECOM MENDA TION FOR TRIGL YCERI DELMA: ADULT CHILD LOW RISK: <150 ----- BODER LINE: 150-1 99 ----- HIGH RISK: >200 ----- Not Available [facility] (Lab) [address] [place], [address], 02/02/2024 19:21:05 02/02/20 24 02/02/2024 LIPID PANEL HDL cholesterol 56 mg/dL 40- Not Available [facility] (Lab) [address] [place], [address], 02/02/2024 19:21:05 02/02/20 24 02/02/2024 LIPID PANEL LDL cholesterol, calculated 70 mg/dL 0-130 NIH JONO NSUS REPOR T RECOM MENDA TIONS FOR LDL: ADULT CHILD LOW RISK <130 <110 (OPTI MAL LDL) <100 ----- DEMETRIS RLINE : 130-1 59 ----- HIGH RISK: >160 >130 A TRIGL YCERI DE RESUL T >400 INVAL IDATE S THE CALCU LATIO N FOR LDL FRACT IONAT ION - THE LDL RESUL T WILL NOT BE REPOR ABLIIO. Not Available [facility] (Lab) [address] [place], [address], 02/02/2024 19:21:05 02/02/2002/02/2024 URIC ACID SERUM uric acid 4.7 mg/dL 3.5-8. 5 Not Available [facility] (Lab) [address] [place], [address], 02/02/2024 19:21:09 02/02/2002/02/2024 URINA LYSIS COMPL ETE/I RIS W/RFX color LIGHT- YELLOW Not Available [facility] (Lab) [address] [place], [address], 02/02/2024 19:27:19 02/02/20 24 02/02/2024 URINA LYSIS COMPL ETE/I RIS W/RFX appear CLEAR Not Available [facility] (Lab) [address] [place], [address], 02/02/2024 19:27:19 02/02/20 24 02/02/2024 URINA LYSIS COMPL ETE/I RIS W/RFX specific gravity 1.041 1.001- 1.030 high Not Available [facility] (Lab) [address] [place], [address], 02/02/2024 19:27:19 02/02/20 24 02/02/2024 URINA LYSIS COMPL ETE/I RIS W/RFX pH 5.5 pH_un its 5.0-9. 0 Not Available [facility] (Lab) [address] [place], [address], 02/02/2024 19:27:19 02/02/20 24 02/02/2024 URINA LYSIS COMPL ETE/I RIS W/RFX leukocytes NEGATI VE ronald/u L negati ve- Not Available [facility] (Lab) [address] [place], [address], 02/02/2024 19:27:19 02/02/20 24 02/02/2024 URINA LYSIS COMPL ETE/I RIS W/RFX nitrite NEGATI VE negati ve- Not Available [facility] (Lab) [address] [place], [address], 02/02/2024 19:27:19 02/02/20 24 02/02/2024 URINA LYSIS COMPL ETE/I RIS W/RFX protein NEGATI VE mg/dL negati ve- Not Available [facility] (Lab) [address] [place], [address], 02/02/2024 19:27:19 02/02/20 24 02/02/2024 URINA LYSIS COMPL ETE/I RIS W/RFX glucose >/=100 0 mg/dL normal - abnormal Not Available [facility] (Lab) [address] [place], [address], 02/02/2024 19:27:19 02/02/20 24 02/02/2024 URINA LYSIS COMPL ETE/I RIS W/RFX ketones NEGATI VE mg/dL negati ve- Not Available [facility] (Lab) [address] [place], [address], 02/02/2024 19:27:19 02/02/20 24 02/02/2024 URINA LYSIS COMPL ETE/I RIS W/RFX urobilinogen NORMAL mg/dL normal - Not Available [facility] (Lab) [address] [place], [address], 02/02/2024 19:27:19 02/02/20 24 02/02/2024 URINA LYSIS COMPL ETE/I RIS W/RFX bilirubin NEGATI VE mg/dL negati ve- Not Available [facility] (Lab) [address] [place], [address], 02/02/2024 19:27:19 02/02/20 24 02/02/2024 URINA LYSIS COMPL ETE/I RIS W/RFX blood NEGATI VE mg/dL negati ve- Not Available [facility] (Lab) [address] [place], [address], 02/02/2024 19:27:19 02/02/20 24 02/02/2024 URINA LYSIS COMPL ETE/I RIS W/RFX white blood cells 0-8 /i??h pfi?? 0-8 Not Available [facility] (Lab) [address] [place], [address], 02/02/2024 19:27:19 02/02/20 24 02/02/2024 URINA LYSIS COMPL ETE/I RIS W/RFX red blood cells 0-4 /i??h pfi?? 0-4 Not Available [facility] (Lab) [address] [place], [address], 02/02/2024 19:27:19 02/02/20 24 02/02/2024 URINA LYSIS COMPL ETE/I RIS W/RFX bacteria NONE Not Available [facility] (Lab) [address] [place], [address], 02/02/2024 19:27:19 02/02/20 24 02/02/2024 URINA LYSIS COMPL ETE/I RIS W/RFX mucous OCCASI ONAL /i??l pfi?? abnormal Not Available [facility] (Lab) [address] [place], [address], 02/02/2024 19:27:19 02/02/20 24 02/02/2024 URINA LYSIS COMPL ETE/I RIS W/RFX squamous epithelial NONE /i??l pfi?? abnormal Not Available [facility] (Lab) [address] [place], [address], 02/02/2024 19:27:19 02/02/20 24 02/02/2024 MICRO ALBUM IN RANDO M URINE microalbumin , urine 6.4 mg/L 0.0-16 .6 Not Available [facility] (Lab) [address] [place], [address], 02/02/2024 19:30:36 02/02/20 24 02/02/2024 VITAM IN D 25-HY DROXY [id number] 26.7 NG/mL 30-100 low Vitam in D Statu s: Defic ient: <20 ng/mL Insuf ficie nt: 20-29 ng/mL Suffi cient : 30-10 0 ng/mL Not Available [facility] (Lab) [address] [place], [address], 02/02/2024 19:39:57 02/02/20 24 02/02/2024 TSH W/REF GOKUL FT4 TSH with reflex free T4 1.190 uIU/m L 0.465- 4.680 Not Available [facility] (Lab) [address] [place], [address], 02/02/2024 19:53:17 02/02/20 24 02/02/2024 PSA SCREE N PSA medicare screen 1.36 NG/mL 0.00-4 .00 Not Available [facility] (Lab) [address] [place], [address], 02/02/2024 19:53:22 02/02/20 24 02/02/2024 HEMOG LOBIN A1C HA1C 5.6 % 4.0-6. 0 Diabe gaby Scree joshua Crite lexus: <5.7% Consi stent with absen ce of diabe gaby 5.7-6 .4% Consi stent with incre ased risk for diabe gaby (pred iabet es) >OR=6 .5% Consi stent with diabe gaby REFER ENCE: Diabe gaby Care 2016, 39(Estrada ppl.1 ):s13 -s22 Not Available [facility] (Lab) [address] [place], [address], 02/02/2024 20:59:39 Result Notes None recorded. Problems Name Problem SNOMED Code Status Onset Date Resolution Date Notes Provider Name and Address Organization Details Recorded Time Type 2 diabetes mellitus without complicatio n 769718997 Active 2022 Yoni Lazaro MD [address] [facility], [address], [address], [employer] 3 16:41:02 Diabetic peripheral neuropathy 060530322 Active 2022 Yoni Lazaro MD [address] [facility], [address], [address], [employer] 3 16:43:12 Hypertensiv e disorder 18077126 Active 2022 Yoni Lazaro MD [address], [address], [place], [address], [place] [facility] 3 16:43:37 Overweight 041440074 Active 2022 Yoni Lazaro MD [address], [address], [place], [address], [place] [facility] 3 16:45:02 Pain of left shoulder joint 8468809608140 9109 Active 2022 Yoni Lazaro MD [address], [address], [place], [address], [place] [facility] 3 16:46:17 Bilateral wrist pain 6954264900856 9105 Active 2022 Yoni Lazaro MD [address], [address], [place], [address], [place] [facility] 3 16:46:47 Diabetes mellitus 11047472 Active 2022 Yoni Lazaro MD [address], [address], [place], [address], [employer] [place] [facility] 3 15:12:07 Hypertrigly ceridemia 682044941 Active 2023 Yoni Lazaro MD [address], [address], [place], [address], [employer] [place] [facility] 4 09:25:30 Hyperlipide philomena 18340783 Active 2023 Yoni Lazaro MD [address], [address], [place], [address], [employer] [place] [facility] 4 09:28:09 Vitamin D deficiency 78624543 Active 2024 DAIN Jacinto [address], [address], [place], [address], [place] [facility] 5 09:15:39 Bilateral shoulder joint pain 8642549371717 9104 Active 2024 DAIN Jacinto [address], [address], [place], [address], [facility] [employer] [facility] 5 09:16:12 Erectile dysfunction 064903777 Active 2024 Mariana Lin, GIFT SHOP CLERK [address], [place], [address], [facility] [employer] [facility] 5 09:18:02 Notes:Diabetes Problem Notes None recorded. [...] TABLET BY MOUTH TWICE DAILY WITH MEALS 2024 active Not Available Not Available Not Avai lable Adult Low Dose Aspirin 81 mg tablet,ramon [...] 1 TABLET BY MOUTH ONCE DAILY NEEDED 2024 active Not Available Not Available Not Avai lable chlorhexidi ne gluconate 0.12 % mouthwash SWISH [...] in Arterial blood by Pulse oximetry Systolic And Diastolic Provider Name and Address Organization Details Last Updated DateTime 5 177.8 cm 31 kg/m2 33129.6 5 g 97.9 [degF] 82 /min 20 /min 99 % 99 % 136/76 mm[Hg] So Aguilar RN [facility] [employer] [facility] 5 09:03:51 Date Recorded Body height Body mass index (BMI) Body weight Body temperature Heart rate Oxygen saturation Oxygen saturation in Arterial blood by Pulse oximetry Respiratory rate Systolic And Diastolic Provider Name and Address Organization Details Last Updated DateTime 5 177.8 cm 29.1 kg/m2 46729.6 g 97.1 [degF] 67 /min 99 % 99 % 20 /min 152/88 mm[Hg] So Aguilar RN [facility] [employer] [facility] 5 09:10:19 Date Recorded Body height Body mass index (BMI) Body weight Body temperature Heart rate Respiratory rate Oxygen saturation Oxygen saturation in Arterial blood by Pulse oximetry Systolic And Diastolic Provider Name and Address Organization Details Last Updated DateTime 4 177.8 cm 29.3 kg/m2 20375.5 9 g 97.6 [degF] 76 /min 20 /min 96 % 96 % 130/70 mm[Hg] So Aguilar RN [facility] [employer] [facility] 4 16:45:03 Date Recorded Body height Body mass index (BMI) Body weight Body temperature Heart rate Respiratory rate Oxygen saturation Oxygen saturation in Arterial blood by Pulse oximetry Systolic And Diastolic Provider Name and Address Organization Details Last Updated DateTime 4 177.8 cm 29.7 kg/m2 38514.3 2 g 98.1 [degF] 78 /min 16 /min 98 % 98 % 132/76 mm[Hg] Delfin Gonsales [facility] [employer] 4 09:55:51 Date Recorded Body height Body mass index (BMI) Body weight Body temperature Oxygen saturation Oxygen saturation in Arterial blood by Pulse oximetry Heart rate Systolic And Diastolic Provider Name and Address Organization Details Last Updated DateTime 4 177.8 cm 29.6 kg/m2 08922.7 3 g 97.4 [degF] 98 % 98 % 88 /min 120/80 mm[Hg] Luisa Kebede RN [facility] [employer] 4 10:11:20 Social History Question Answer Notes LastModified by Organizat ion Details LastModified Time Tobacco Smoking Status Former Smoker Yoni aLzaro MD [address] [place] [address], [address], [facility] [employer] 02/06/2023 15:24:14 Do You Have An Advance Directive? No Information n ot available 01/16/2023 Is Blood Transfusion Acceptable In An Emergency? Yes Information not available 01/16/2023 What Is Your Level Of Caffeine Consumption? Moderate Information not available 11/04/2023 What Is Your Code Status? DNR Information not available 01/16/2023 In The 14 Days Before Symptom Onset, Have You Had Close Contact With A Laboratory-confirm ed COVID-19 While That Case Was Ill? No Information n ot available 01/16/2023 In The 14 Days Before Symptom Onset, Have You Had Close Contact With A Person Who Is Under Investigation For COVID-19 While That Person Was Ill? No Information not available 01/16/2023 What Type Of Diet Are You Following? REGULAR Information n ot available 01/16/2023 What Is The Highest Grade Or Level Of School You Have Completed Or The Highest Degree You Have Received? [id number] Information not available 01/16/2023 Have There Been Any Changes To Your Family Or Social Situation? No Information no t available 01/16/2023 Do You Use Insect Repellent Routinely? No Information not available 02/24/2024 Where Do You Live? Apartment Inform ation not available 02/24/2024 Do You Have A Medical Power Of Rack Worker? No Information not available 01/16/2023 How Many [...] No Information not available 01/16/2023 Do You Use Sunscreen Routinely? No Information not available 01/16/2023 Have You Recently Traveled Abroad? No Information not available 01/16/2023 Sex: Female Functional Status Question Answer Note LastModified by Organizat ion Details LastModified Time Do you use any illicit or recreational drugs? No [email or web address] Information not available 02/02/2024 What is your level of alcohol consumption? Occasional [email or web address] Information not available 02/02/2024 Are you currently employed? 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 [id number] Information not available 01/16/2023 Family History Relationship Description Onset Age of this Age Resolved Age Notes LastModified by Organization Details LastModified Time Father No current problems or disability Not available 01/16 16:31:49 Mother No current problems or disability Not available 01/16 16:31:50 Medical History Condition Response BLINDNESS N RHEUMATIC FEVER N KIDNEY STONES N BLADDER PROBLEMS N MRSA N OTHER # 1 N POLIO N LUNG DISEASE/DISORDER N HISTORY OF DRUG ABUSE N RADIATION / CHEMOTHERAPY N COPD N Other # 2 N BLOOD DISEASES N SURGERY N EAR OR HEARING PROBLEMS N MUMPS N SHINGLES N FEMALE PROBLEMS / INFECTIONS N DEPRESSION (INCLUDING POST ) N BOWEL PROBLEMS N FAILED BACK SYNDROME N STROKE/TIA N THYROID DISEASE N ULCERS N BENIGN PROSTATIC HYPERPLASIA N MEASLES N CERVICALGIA N TB SKIN TEST N HYPOTENSION N MYOCARDIAL INFARCTION N PARAPELGIA N OBESITY [...] BLEEDING N BLOOD CLOTS N ASTHMA N CATARACTS N Abdominal Pain N ERECTILE DYSFUNCTION N ARTERIAL INSUFFICIENCY N GI PROBLEMS N CHF N Low Testosterone N NEUROPATHY N INFERTILITY N AIDS/HIV N FRACTURES N CHEMOTHERAPY / RADIATION N VISION/EYE PROBLEMS N LIVER DISEASE N HYPERTENSION Y TOURETTE'S N ANXIETY DISORDER N BLOOD TRANSFUSION N ANEMIA/BLOOD DISORDER N CHRONIC EAR INFECTIONS N BRONCHITIS N TUBERCULOSIS N GLAUCOMA N FOOT PROBLEM N DIVERTICULITIS N SLEEP APNEA N CHICKENPOX N BACK INJECTIONS N ALLERGIES/HAYFEVER N INFECTIOUS DISEASE N PROSTATE N HEART ARRHYTHMIA N INSOMNIA N ESRD N HIGH CHOLESTEROL / HYPERLIPIDEMIA Y HYPERTHYROIDISM N EYE PROBLEMS N PVD N EATING DISORDER N EDEMA N CHRONIC PAIN SYNDROME N CONSTIPATION N CAROTID BLOCKAGE N BACK / NECK PROBLEMS N HAVE YOU BEEN HOSPITALIZED OR SEEN IN [facility] IN THE PAST YEAR ? N ATHEROSCLEROSIS [...] N PAIN N HERPES N DEMENTIA N SEIZURES/EPILEPSY N HEADACHES/MIGRAINES N VASCULAR DISEASE N PACEMAKER N DIZZINESS N KIDNEY DISEASE N HEART DISEASE/HEART PROBLEMS N SCARLET FEVER N MULTIPLE SCLEROSIS N MENTAL DISORDER/ILLNESS N DEVELOPMENTAL OR BEHAVIORAL DISORDERS N NEUROPSYCHOLOGICAL N CARDIAC ARRHYTHMIA N CANCER: SPECIFY N PNEUMONIA N Gall Stones N ATRIAL FIBRILLATION N PULMONARY EMBOLISM N AUTOIMMUNE DISEASE N Past Encounters Encounter ID Performer Location Encounter Start Date Encounter Closed Date Diagnosis/Indication Diagnosis SNOMED-CT Code Diagnosis ICD10 Code Diagnosis Note [id number] Yoni Lazaro MD [address] [address] 01/16/2023 16:06:07 01/16/2023 16:56:31 Type 2 diabetes mellitus without complication 031422904 E11.9 Diabetic p eripheral neuropathy 298014073 E11.40 Hypertensive disorder 38 537430 I10 Overweight 526420212 E66 .3 Pain of le ft shoulder joint 4746523978 1362757 M25.512 Bilateral wrist pain 148 4634394 3661654 M25.751 [id number] Yoni Lazaro MD [address] [address] 02/06/2023 14:58:43 02/06/2023 15:28:44 Adult health examination 618728902 Z00.00 Bilateral wrist pain 595 7871722 8980453 M25.531 Diabetic p eripheral neuropathy 603432481 E11.40 Type 2 nilay betes mellitus without complication 219540902 E11.9 Diabetes mellitus 236138 09 E11.9 [id number] Yoni Lazaro MD [address] [address] 02/25/2023 09:14:58 02/25/2023 10:03:19 Bilateral wrist pain 2263424441 0189133 M25.531 Diabetic p eripheral neuropathy 176223686 E11.40 Type 2 nilay betes mellitus without complication 647867675 E11.9 Diabetes mellitus 691673 09 E11.9 Hypertensive disorder 38 026223 I10 Pain of le ft shoulder joint 3359740469 0437692 M25.443 [id number] Yoni Lazaro MD [address] [address] 03/20/2023 08:40:16 03/20/2023 14:11:34 [id number] Yoni Lazaro MD [address] [address] 03/31/2023 09:07:20 03/31/2023 09:33:43 Type 2 diabetes mellitus without complication 178698529 E11.9 Diabetic p eripheral neuropathy 882780707 E11.40 Hypertensive disorder 38 049097 I10 Bilateral wrist pain 546 0993702 8289108 M25.531 Diabetes mellitus 698940 09 E11.9 Pain of le ft shoulder joint 9808920567 7376483 M25.512 Hypertriglyceridemia 302 220779 E78.2 Hyperlipidemia 66937505 E78.5 Overweight 083253133 E66 .3 [id number] Yoni Lazaro MD [address] [address] 06/30/2023 09:22:36 06/30/2023 09:44:50 Type 2 diabetes mellitus without complication 170079911 E11.9 Diabetic p eripheral neuropathy 861019096 E11.40 Hypertensive disorder 38 505481 I10 Bilateral wrist pain 791 3160049 4451228 M25.531 Diabetes mellitus 084077 09 E11.9 Pain of le ft shoulder joint 0034074542 9233818 M25.512 Hypertriglyceridemia 302 079644 E78.2 Hyperlipidemia 04605174 E78.5 Overweight 625522711 E66 .3 [id number] Yoni Lazaro MD [address] [address] 11/04/2023 16:38:11 11/04/2023 17:09:32 Type 2 diabetes mellitus without complication 239960445 E11.9 Diabetic p eripheral neuropathy 595996112 E11.40 Hypertensive disorder 38 254196 I10 Bilateral wrist pain 588 3347733 2088454 M25.531 Diabetes mellitus 277218 09 E11.9 Pain of le ft shoulder joint 7704926384 6424386 M25.512 Hypertriglyceridemia 302 136289 E78.2 Hyperlipidemia 70745749 E78.5 Overweight 823000642 E66 .3 [id number] Yoni Lazaro MD [address] [address] 12/10/2023 09:26:09 12/10/2023 10:14:06 Type 2 diabetes mellitus without complication 225334154 E11.9 Hypertensive disorder 38 479070 I10 Diabetic p eripheral neuropathy 656607511 E11.40 Bilateral wrist pain 323 1146536 5344173 M25.531 Chronic Diabetes mellitus 060596 09 E11.9 Pain of le ft shoulder joint 8854690731 8385862 M25.512 Chronic Hypertriglyceridemia 302 433202 E78.2 Hyperlipidemia 82912370 E78.5 Overweight 174932284 E66 .3 [id number] Yoni Lazaro MD [address] [address] 02/02/2024 10:02:42 02/02/2024 10:31:52 Hypertensive disorder 10137290 I10 Type 2 nilay betes mellitus without complication 718608313 E11.9 Diabetic p eripheral neuropathy 903603512 E11.40 Bilateral wrist pain 679 3134423 4595337 M25.531 Chronic Diabetes mellitus 671739 09 E11.9 Pain of le ft shoulder joint 4850003282 9488838 M25.512 Chronic Hypertriglyceridemia 302 808861 E78.2 Hyperlipidemia 99818977 E78.5 Overweight 207902956 E66 .3 Adult [facility] th examination 863282754 Z00.00 [id number] Yoni Lazaro MD [address] [address] 02/24/2024 08:52:31 02/24/2024 09:24:37 Bilateral wrist pain 4981688526 8243132 M25.531 M25.532 Carpal tunnel, worsening. Numbness and tingling in KATIE hands Bilateral shoulder joint pain 7705404104 1563986 M25.511 M25.512 Pain with limited ROM, difficulty with ADLs like putting on his shirt Vitamin D deficiency 347 59471 E55.9 asymptomat ic, prefers weekly supplement Diabetic r etinal eye exam not done 2662365964 103 Z53.9 Has not seen opthamolog y in a few years, would like insurance referral. [id number] Yoni Lazaro MD [address] [address] [place] [address] 05/25/2024 08:55:08 05/25/2024 10:00:49 Type 2 diabetes mellitus without complication 696310506 E11.9 Would like to stop Actos pending A1C Erectile dysfunction 860 666877 F52.21 Hyperlipidemia 81561488 E78.5 Health Concerns Section Related Observation LastModified by Organization Detai ls LastModified Time None Recorded Concern Status LastModified by Organization Details LastModified Time None Recorded Advance Directives Directive N: Payers Insurance Date Sequence Insurance Name Policy Number Policy Perea Covered Member ID Perea Member ID Guarantor Name 11/04/2023 1 [facility] Tomasz Bean [id number] Tomasz Bean 11/04/2023 1 [place] [id number] Tomasz Bean [id number] Tomasz Bean 11/04/2023 1 [place] Tomasz Bean [id number] Tomasz Bean 11/04/2023 1 [place] Tomasz Bean [id number] Tomasz Bean 05/22/2024 1 [employer] [place] ON [place] AFTER 2020 (MEDICAID REPLACEMENT - HMO) Tomasz Bean [id number] Tomasz Bean 11/04/2023 1 [place] Tomasz Bean [id number] Tomasz Bean Notes Date Note Type Note [...] Denies any workman's comp. Yoni Lazaro MD [address] [place] [address], [address] [address], [place], [address], [place] [facility] 11/04/2023 17:04:04 12/10/2023 text/html Pt is here [...] any workman's comp. Yoni Lazaro MD [address], [address], [place], [address], [employer] 12/10/2023 10:11:35 02/02/2024 text/html Pt is here for h is annual exam. Doing overall better. Denies any problem with meds. Denies any new concern. Pt has not seen Ortho yet. C/o chronic Lt shoulder pain for last several years. C/o b/l wrist pain for last several years. Denies any workman's comp. Yoni Lazaro MD [address], [place], [address], [employer] 02/02/2024 10:26:32 02/24/2024 text/html Arian Bean is [...] shoulder pain, limited ROM. DAIN Jacinto [address], [place], [address], [employer] 02/24/2024 09:24:54 05/25/2024 text/html Arian Bean is a 53 year old male patient here today for multiple concerns type 2 DM, notes that he occasionally has low blood sugars, lowest 46 and was clammy. Would like to stop Actos if possible. Concerns with erectile dysfunction. Would like to take something for this. Mariana Lin, DAIN [address] [facility], [facility] [address], [place], [address], [place] [facility] 05/25/2024 10:13:39
--- OUTSIDE RECORDS SUMMARY | 2024-08-27 08:22 | XMS_ITS | Patient Health Record ---
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
[2024-08-27 08:30] VITALS: BP 125/74; PULSE 62; RESP 17; TEMP 36.1; O2SAT 100
--- NOTE | 2024-08-27 08:51 | ED_ITS ---
HPI - Abdominal Pain General Chief Complaint: Abdominal Pain Stated Complaint: Stomach Problems Time Seen by Provider: 08/27/24 08:56 Source: patient and RN notes reviewed Mode of arrival: ambulatory Limitations: no limitations History of Present Illness HPI narrative: 53-year-old male presents with concern for black stools. He reports he has had loose stool for about a week and over the last couple of days it has become black. He reports he started having lower back pain today. He has also had some muscle aches. He reports he has been dehydrated recently from working outside. He denies fever, chills, sweats. He reports fatigue. He denies nausea, vomiting, abdominal pain. He reports he took Pepto-Bismol yesterday, but the black stool started before he took Pepto-Bismol. MD elicited complaint: other (Black stool) Related Data Home Medications ?Medication ?Instructions ?Recorded ?Confirmed ?Last Taken ?Type aspirin 81 mg tablet,delayed 81 mg PO DAILY 05/27/23 06/23/24 Unknown History release atorvastatin 10 mg tablet 10 mg PO HS 05/27/23 06/23/24 Unknown History blood sugar diagnostic ([facility] 05/27/23 06/23/24 Unknown History Ultra Test strips) blood-glucose meter ([facility] 05/27/23 06/23/24 Unknown History Ultra2 Meter) empagliflozin 25 mg tablet 25 mg PO DAILY 05/27/23 06/23/24 Unknown History ([employer]) gabapentin 600 mg tablet 600 mg PO TID 05/27/23 06/23/24 Unknown History glipizide 5 mg tablet 5 mg PO BID 05/27/23 06/23/24 Unknown History [facility]ets [facility] 05/27/23 06/23/24 Unknown History Plus Lancet) lisinopril 5 mg tablet 5 mg PO DAILY 05/27/23 06/23/24 Unknown History metformin 500 mg tablet,extended 1,000 mg PO BID 05/27/23 06/23/24 Unknown History release 24 hr pioglitazone 30 mg tablet (Actos) 30 mg PO DAILY 05/27/23 06/23/24 Unknown History dulaglutide 1.5 mg/0.5 mL mg subcut 06/23/24 Unknown History subcutaneous pen injector (Trulicity) ergocalciferol (vitamin D2) 1,250 06/23/24 Unknown History mcg (50,000 unit) capsule fenofibrate 54 mg tablet mg 06/23/24 Unknown History tadalafil 10 mg tablet mg 06/23/24 Unknown History Allergies Allergy/AdvReac Type Severity Reaction Status Date / Time Penicillins Allergy Mild Hives Verified 08/27/24 08:26 Review of Systems Review of Systems: CONSTITUTIONAL: Denies malaise, chills, sweats, or fever. Reports fatigue ENT: Denies rhinorrhea, congestion, sinus pain, otalgia or sore throat. CARDIOVASCULAR: Denies chest pain, palpitations, or edema. RESPIRATORY: Denies cough or dyspnea. GASTROINTESTINAL: Denies abdominal pain, nausea, vomiting. Reports black loose stools GENITOURINARY: Denies dysuria or hematuria. MUSCULOSKELETAL: Reports myalgia. NEUROLOGIC: Denies headache. All systems reviewed & are unremarkable except as noted in HPI and below PMFSH Past Medical History Medical History History of diabetes mellitus, type II History of high blood pressure History of high cholesterol Social History Social History Smoking status: Former smoker Comments At time of signature, agree with nursing past medical, surgical, social and family history. There is no relevant family history pertinent to the presenting complaint Exam Narrative: GENERAL: Well-appearing, well-nourished, and in no acute distress. HEAD: Normocephalic, atraumatic. EYES: PERRLA, conjunctivae clear, and EOMI.Oropharynx without edema, erythema, or lesions. Tonsils not enlarged and without exudate. NECK: Supple. No lymphadenopathy CHEST: Speaks in full sentences. No respiratory distress. HEART: Regular rate and rhythm. ABDOMEN: Soft, flat, nondistended, mild tenderness. No guarding, rebound tenderness, or rigidity. No pulsatile masses. Bowel sounds present in all four quadrants. SKIN: Warm, dry, no rash. NEURO: Alert and oriented x3. PSYCH: Normal mood and affect Course Course Emergency Course: Patient is aware of, understands and agrees to be sent to the emergency room. Patient agrees to proceed directly to the emergency department. Portions of this record may have been created with voice recognition software Level of Care: Express Care Visit Vital Signs Vital signs: Vital Signs Temperature 96.9 F L 08/27/24 08:30 Pulse Rate 62 08/27/24 08:30 Respiratory Rate 17 08/27/24 08:30 Blood Pressure 125/74 08/27/24 08:30 Pulse Oximetry 100 08/27/24 08:30 Oxygen Delivery Room Air 08/27/24 08:30 Temperature 96.9 F L 08/27/24 08:30 Pulse Rate 62 08/27/24 08:30 Respiratory Rate 17 08/27/24 08:30 Blood Pressure 125/74 08/27/24 08:30 Pulse Oximetry 100 08/27/24 08:30 Oxygen Delivery Room Air 08/27/24 08:30 Reviewed. Transfer Transfered to: Other ([facility]) Transportation: Other (Private vehicle) Transfer rationale: Black stool Accepting physician: Chris MDM - Abdominal Pain MDM Narrative Medical decision making narrative: Patient is nontoxic appearing and in no acute distress Critical Care Time Critical Care Time Critical Care Time: No Discharge Plan Discharge Clinical Impression: Dark stools Patient Disposition: Acute Care Hospital Condition: Stable Patient Language: Vietnamese Prescriptions: No Action ergocalciferol (vitamin D2) 1,250 mcg (50,000 unit) capsule tadalafil 10 mg tablet fenofibrate 54 mg tablet Trulicity 1.5 mg/0.5 mL pen injector SUBCUT gabapentin 600 mg tablet 600 mg PO TID (DME) blood-glucose meter [[facility] Ultra2 Meter] Misc MISCELLANEOUS atorvastatin 10 mg tablet 10 mg PO HS (DME) OneTouch Ultra Test Strip MISCELLANEOUS aspirin 81 mg tablet,delayed release (DR/EC) 81 mg PO DAILY lisinopril 5 mg tablet 5 mg PO DAILY pioglitazone [Actos] 30 mg tablet 30 mg PO DAILY metformin 500 mg tablet extended release 24 hr 1,000 mg PO BID glipizide 5 mg tablet 5 mg PO BID (DME) lancets [OneTouch Delica Plus Lancet] 33 gauge misc MISCELLANEOUS Jardiance 25 mg tablet 25 mg PO DAILY Follow-up/Referrals: PHYSICIAN,MINE EXPLORATION ENGINEER [Primary Care Provider] - Time of Disposition: 09:12
== END 2024-08-27 09:05 | disposition short-term general hospital (02) ==
PROVIDERS: Emergency Provider Nurse Practitioner
DX: K92.1 Melena (principal); E11.9 Type 2 diabetes mellitus without complications; Z87.891 Personal history of nicotine dependence
CPT/HCPCS: 99212; G0463